=== PATIENT | male | born 1975 | race Caucasian/White ===

== ENCOUNTER 2020-07-03 10:01 | Outpatient (CLI) | payer OTHER, SELFPAY ==
--- NOTE | 2020-07-03 13:05 | WPDPFTINT ---
PFT Interpretation PFT Interpretation: DOS: 07/03/2020 REQUESTING: Steven Albarran PA-C REASON FOR TESTING: shortness of breath, tobacco PULMONARY FUNCTION TESTS Results are reliable and reproducible. Spirometry: FEV1 91%, FVC 95%, both normal. FEV1% is normal, 94%. GGZ70-60% is 71%. There is no change with bronchodilator. Lung volumes: TLC 126%, mild hyperinflation. RV is 197%, severe air trapping. Airway resistance is 100%, normal. Diffusion: DLCO 98%. Flow volume loop: Normal. IMPRESSION: this pulmonary function test shows normal spirometry. Mild hyperinflation. Severe air trapping. Normal diffusion. This is consistent with a mild obstructive ventilatory defect. No response to bronchodilator. This does not preclude the use of bronchodilator if clinically indicated. Noelle Hernandez MD
== END 2020-07-03 10:02 | disposition home or self-care (01) ==
PROVIDERS: PCP Physician Assistant; Visit Provider Physician Assistant
DX: Z72.0 Tobacco use (principal)
CPT/HCPCS: 94060; 94726; 94729

== ENCOUNTER 2020-08-16 05:33 | Emergency (ER) | payer OTHER, SELFPAY ==
--- NOTE | ~2020-08-16 | XR_ITS ---
EXAMINATION: XR toe 1st RT min 2V DATE: 08/16/2020 06:01 INDICATION: Right great toe laceration. TECHNIQUE: 4 views of right great toe were obtained. COMPARISON: None. FINDINGS: Bone alignment is normal. No fracture. 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 IMPRESSION: 1. No fracture. Reviewed, dictated and finalized at location A. IMPRESSION: 1. No fracture.
[2020-08-16 05:35] VITALS: BP 125/88; PULSE 73; RESP 18; TEMP 36.6; O2SAT 96
--- NOTE | 2020-08-16 05:42 | ED.WOUNDLAC ---
HPI - Wound/Laceration General Chief Complaint: Wound/Laceration Stated Complaint: Right great toe laceration Source: patient and EMS Mode of arrival: EMS Limitations: no limitations History of Present Illness HPI narrative: this is a 45-year-old gentleman that presents after he was outdoors and he stepped on what he described as a sharp object/possible razor blade that caused laceration to the underside of his right large toe appears well approximated initially blood quite a bit currently there is no bleeding there is no gaping area there is no numbness or tingling has a good pedal pulse on the right. Patient is not up-to-date with his tetanus. Onset (ago): hour(s) Extremity Location: Right: foot (Laceration) Place: outdoors Context: accidental Associated symptoms: none Related Data Home Medications Medication Instructions Recorded Confirmed venlafaxine 300 mg PO DAILY 08/16/20 08/16/20 Allergies Allergy/AdvReac Type Severity Reaction Status Date / Time No Known Allergies Allergy Verified 08/16/20 05:41 Review of Systems Review of Systems: All systems reviewed & are unremarkable except as noted in HPI and below [facility] Past Medical History Medical History Tobacco abuse Exam Const: General: no acute distress and alert Orientation/consciousness: patient oriented x3 HENMT: Head: normal to inspection Eyes: Conjunctivae: conjunctivae normal Pupils: Equal, round and reactive pupils present Neck: Neck: normal visual inspection, no lymphadenopathy and no meningeal signs Chest: Chest palpation & inspection: normal inspection of the chest Resp: Effort & Inspection: normal respiratory effort Auscultation: clear to auscultation bilaterally Cardio: Rate: regular rate Rhythm: regular rhythm GI: GI Palp: Yes Soft to palpation Percussion: Yes normal to percussion Back/Spine/Pelvis: Back: no CVA tenderness Skin: Other: laceration to the underside of his right large toe non gaping well-approximated currently no bleeding. Neuro: General: patient oriented x3, moves all extremities, no meningeal signs and no focal motor deficits Extrem: General: normal to inspection Psych: Appearance: grossly normal Mental Status: mental status grossly normal Affect: normal affect Attitude: cooperative Course Course Emergency Course: X-ray reviewed with patient and Dermabond applied to the laceration. Patient was updated with his tetanus vaccine. Procedures Laceration Laceration 1: Date: 08/16/20 Time: 06:11 Site: lower extremity Side (If applicable): right Size (cm): 2.5 Description: linear ====== Skin Level ====== Skin layer closed with: dermabond ====== Subcutaneous Layer ====== ====== Muscle Layer ====== ====== Tendon Layer ====== Critical Care Time Critical Care Time Critical Care Time: No Discharge Plan Discharge Clinical Impression: Laceration Patient Disposition: Home, Self-Care Condition: Stable Instructions: Antibiotic Form, Laceration (ED) Additional Instructions: Follow-up with primary care physician if symptoms persist or worsen. Prescriptions: No Action venlafaxine 75 mg capsule,extended release 24hr 300 mg PO DAILY RF: 0 Follow-up/Referrals: Deion,HECTOR Walsh [Primary Care Provider] - Time of Disposition: 06:12
[2020-08-16] MEDS: TETANUS,DIPHTHERIA,AC PERTUSSIS ADULT 0.5 ML (ADACEL) IM (05:53)
--- NOTE | 2020-08-16 06:01 | PC.NURSE ---
0540-I cleaned patient's wound on his right foot, first digit, great toe, with betadine swabs and sterile water.
[2020-08-16 06:16] VITALS: BP 140/92; PULSE 80; RESP 20; O2SAT 97
== END 2020-08-16 06:27 | disposition home or self-care (01) ==
PROVIDERS: Emergency Provider Emergency Medicine; PCP Physician Assistant
DX: S91.111A Laceration without foreign body of right great toe without damage to nail, initial encounter (principal); W26.9XXA Contact with unspecified sharp object(s), initial encounter
CPT/HCPCS: 12001; 73660; 90471; 90715; 99282; 99283

== ENCOUNTER 2021-02-07 15:23 | Emergency (ER) | payer OTHER, SELFPAY ==
[2021-02-07 15:30] VITALS: BP 127/91; PULSE 79; RESP 18; TEMP 36.4; O2SAT 98
--- NOTE | 2021-02-07 16:10 | ED.GENADULT ---
HPI - General Adult General Chief complaint: Unspecified Stated complaint: stuck in rt leg with a needle Time Seen by Provider: 02/07/21 15:25 Source: patient and RN notes reviewed Mode of arrival: ambulatory Limitations: no limitations History of Present Illness HPI narrative: superficial right hip needle stick. no acute redness, swelling or deformity complaint: right hip superficial needle stick injury Onset (ago): hour(s) (1) Location: lower extremity (right hip) Radiation: non-radiation Severity scale (1-10): 1 Quality: dull Pain Consistency: constant Relieving factors: none Exacerbating factors: none Associated symptoms: denies other symptoms Treatments prior to arrival: none Related Data Allergies Allergy/AdvReac Type Severity Reaction Status Date / Time No Known Allergies Allergy Verified 08/16/20 05:41 Review of Systems Review of Systems: All systems reviewed & are unremarkable except as noted in HPI and below PMFSH Past Medical History Medical History Tobacco abuse Exam Const: General: cooperative, healthy appearing and comfortable Nutritional Appearance: average body habitus Orientation/consciousness: patient oriented x3 Limitations: no limitations HENMT: Head: normal to inspection Ears: hearing grossly normal bilaterally, external ears normal and TM's normal bilaterally General nose exam: Normal external nose present, Normal nares present and No nasal polyps present Mouth: Yes Normal oral and palatal mucosa present, Yes lip normal and Yes tongue normal Teeth and gingiva: dentition normal Throat: posterior oropharynx normal Eyes: General: appearance normal, both eyes and all related structures Eyelids: eyelids normal Conjunctivae: conjunctivae normal Sclera: sclerae normal Cornea: corneas normal Pupils: Equal, round and reactive pupils present EOM: EOMs intact bilaterally Neck: Neck: normal visual inspection, full ROM and no lymphadenopathy Chest: Chest palpation & inspection: normal inspection of the chest Resp: Effort & Inspection: normal respiratory effort Auscultation: clear to auscultation bilaterally Cardio: Rate: regular rate Rhythm: regular rhythm GI: Inspection: normal to inspection GI Palp: Yes Soft to palpation Percussion: Yes normal to percussion Auscultation: normal bowel sounds : General: Yes bladder normal to inspection and Yes bladder normal to palpation Male General Exam: Yes other (left upper hip single superficial puncture wound. no acute swelling, pus ) Back/Spine/Pelvis: Back: no CVA tenderness Thoracic/Lumbar Spine: thoracic and lumbar spine normal to inspection Pelvis: no pain with anterior-posterior compression and no pain with lateral compression Skin: General skin exam: normal color and no rashes or lesions noted Rashes: no rashes Hair: normal Nails: normal Neuro: General: patient oriented x3 and gait normal Cranial nerves: Yes CN's II-XII intact bilaterally and Yes Bilaterally intact EOM present Cognition (Neuro): normal cognition Speech: normal speech Gait exam (Neuro): Normal gait present Extrem: General: normal to inspection, full ROM and capillary refill normal Psych: Appearance: grossly normal and well kempt Mental Status: mental status grossly normal Affect: normal affect Attitude: cooperative Thought process: Normal thought process present Thought content: Yes Normal thought content present Insight: Good insight present (Psych) Judgement: Good judgement present (Psych) Course Course Emergency Course: Stable pt with superficial right hip puncture wound. Reevaluation(s) Reevaluation #1: Stable, pain-free patient. Date: 02/07/21 Time: 16:26 Vital Signs Vital signs: Vital Signs Temperature 36.4 C 02/07/21 15:30 Pulse Rate 79 02/07/21 15:30 Respiratory Rate 18 02/07/21 15:30 Blood Pressure 127/91 H 02/07/21 15:30 Pulse Oximetry 98 02/07/21 15:30 Temperat
[2021-02-07 16:45] LABS: Basophils Absolute Auto 0.07 K/mm3 (0.00-0.10); Basophils Percent Auto 1.2 % (0.0-1.0); Eosinophils Absolute Auto 0.12 K/mm3 (0.02-0.50); Hematocrit 36.7 % (40.0-54.0); Hemoglobin 12.1 g/dL (14.0-18.0); Immature Granulocyte Absolute 0.01 K/mm3 (0.00-0.00); Immature Granulocyte Percent A 0.2 % (0.0-0.0); Lymphocytes Percent Auto 30.7 % (18.0-42.0); Mean Corpuscular Hemoglobin 28.9 pg (27.0-31.0); Mean Corpuscular Volume 87.6 fL (78.0-102.0); Mean Platelet Volume 8.9 fl (8.7-11.0); Monocytes Absolute Auto 0.59 K/mm3 (0.10-0.90); Monocytes Percent Auto 10.1 % (2.0-11.0); Neutrophils Absolute Auto 3.3 K/mm3 (1.7-7.2); Neutrophils Percent Auto 55.8 % (50.0-70.0); Platelet Count Result 250 K/mm3 (150-420); Red Blood Count 4.19 M/mm3 (4.70-6.10); Red Cell Distribution Width 13.2 % (11.6-14.4); White Blood Count 5.9 K/mm3 (4.8-10.8)
[2021-02-07 17:10] VITALS: RESP 16
[2021-02-07 17:17] LABS: HIV 1 P24 AG Negative (Negative); HIV 1/2 AB Negative (Negative)
--- NOTE | 2021-02-07 17:17 | PC.NURSE ---
pt states I have a celebration of life for my Dad ousmane at 6;00 and I need to go right now , discharge papers provided quickly. pt instructed to call boom operator if any questions arise and f/u with pcp for results
[2021-02-11 12:21] LABS: Hepatitis A Antibody IgM Nonreactive; Hepatitis B Core Antibody Nonreactive (Nonreactive); Hepatitis B Surface Antigen Nonreactive (Nonreactive); Hepatitis C Signal to Cutoff 0.01 ratio (<1.00); Hepatitis C Virus Antibody Nonreactive (Nonreactive)
== END 2021-02-07 17:10 | disposition home or self-care (01) ==
PROVIDERS: Emergency Provider Emergency Medicine; PCP Physician Assistant
DX: S81.831A Puncture wound without foreign body, right lower leg, initial encounter (principal)
CPT/HCPCS: 36415; 80074; 85025; 86703; 99283

== ENCOUNTER 2021-09-30 14:10 | Emergency (ER) | payer OTHER, SELFPAY ==
--- NOTE | ~2021-09-30 | XR_ITS ---
EXAMINATION: XR hand LT min 3V INDICATION: Left hand pain TECHNIQUE: Three views of the left hand are obtained. COMPARISON: None available FINDINGS: There is no fracture, dislocation, or subluxation. The bones, soft tissues, and joint space s are normal. IMPRESSION: 1. No acute osseous abnormality. Reviewed, dictated and finalized at location A.
--- NOTE | ~2021-09-30 | XR_ITS ---
EXAMINATION: XR wrist LT 2V INDICATION: Left wrist pain TECHNIQUE: Two views of the left wrist are obtained. COMPARISON: None available FINDINGS: There is no fracture, dislocation, or subluxation. The bones and joint spaces are normal. T here is soft tissue swelling overlying the lateral and ventral distal forearm. IMPRESSION: 1. No acute osseous abnormality. Reviewed, dictated and finalized at location A.
[2021-09-30 14:15] VITALS: BP 129/86; PULSE 84; RESP 18; TEMP 37.1; O2SAT 98
--- NOTE | 2021-09-30 15:31 | ED.UPPEXIN ---
HPI - Extremity Injury (Upper) General Chief Complaint: Extremity Injury, Upper Stated Complaint: WRIST AND HAND PAIN Time Seen by Provider: 09/30/21 14:12 Related Data Allergies Allergy/AdvReac Type Severity Reaction Status Date / Time No Known Allergies Allergy Verified 08/16/20 05:41 [facility] Past Medical History Medical History Tobacco abuse Course Vital Signs Vital signs: Vital Signs Temperature 37.1 C 09/30/21 14:15 Pulse Rate 84 09/30/21 14:15 Respiratory Rate 18 09/30/21 14:15 Blood Pressure 129/86 09/30/21 14:15 Pulse Oximetry 98 09/30/21 14:15 Temperature 36.6 C 09/30/21 15:56 Pulse Rate 84 09/30/21 15:56 Respiratory Rate 20 09/30/21 15:56 Blood Pressure 129/86 09/30/21 15:56 Pulse Oximetry 98 09/30/21 15:56 Discharge Plan Discharge Clinical Impression: Sprain and strain of wrist Contusion of hand, left Qualifiers: Encounter type: initial encounter Qualified Code(s): S60.222A - Contusion of left hand, initial encounter Patient Disposition: Home, Self-Care Condition: Stable Instructions: Antibiotic Form, How to Use a Sling (ED), Splint Care (ED) Additional Instructions: home. May RTC prn. PMD in 1-2 days. Rx below. RICE. Off work x 2 days vs light duty. Prescriptions: New ibuprofen 800 mg tablet 800 mg PO TID Qty: 20 RF: 0 omeprazole magnesium [Prilosec OTC] 20 mg tablet,delayed release (DR/EC) 20 mg PO BID Qty: 20 RF: 0 No Action methylprednisolone [Medrol] 4 mg tablet 4 mg PO DAILY Qty: 21 RF: 0 diphenhydramine HCl [Benadryl] 25 mg capsule 50 mg PO TID PRN (Reason: allergic reaction) Qty: 20 RF: 0 Follow-up/Referrals: Deion,HECTOR Walsh [Primary Care Provider] - Stand Alone Forms: Work/School Release IP Time of Disposition: 15:08
[2021-09-30] MEDS: KETOROLAC (*BKC) 60 MG/2 ML VIAL IM (15:51)
[2021-09-30 15:56] VITALS: BP 129/86; PULSE 84; RESP 20; TEMP 36.6; O2SAT 98
== END 2021-09-30 16:02 | disposition home or self-care (01) ==
PROVIDERS: Emergency Provider Emergency Medicine; PCP Physician Assistant
DX: S60.222A Contusion of left hand, initial encounter (principal); S63.502A Unspecified sprain of left wrist, initial encounter
CPT/HCPCS: 73100; 73130; 96372; 99283; A4565; J1885

== ENCOUNTER 2021-10-14 15:47 | Emergency (ER) | payer OTHER, SELFPAY ==
[2021-10-14 15:50] VITALS: BP 140/78; PULSE 87; RESP 18; TEMP 36.6; O2SAT 97
--- NOTE | 2021-10-14 16:01 | ED.GIBLEED ---
HPI - GI Bleed General Chief complaint: GI Bleed Stated complaint: passing blood Time Seen by Provider: 10/14/21 16:01 Source: patient and RN notes reviewed Mode of arrival: ambulatory Limitations: no limitations History of Present Illness complaint: blood on toilet paper Onset (ago): day(s) (1) Pain Consistency: intermittent Severity: mild Relieving factors: none Exacerbating factors: bowel movement Associated symptoms: denies other symptoms Treatments Prior to Arrival: none Related Data Allergies Allergy/AdvReac Type Severity Reaction Status Date / Time No Known Allergies Allergy Verified 08/16/20 05:41 Review of Systems Review of Systems: All systems reviewed & are unremarkable except as noted in HPI and below Constitutional: Constitutional: Denies weakness Respiratory: Respiratory: Denies dyspnea Gastrointestinal: Gastrointestinal: Denies constipation, Denies diarrhea, Denies nausea and Denies vomiting PMFSH Past Medical History Medical History (Updated 10/14/21 @ 16:24 by Nomi Camacho MD) Perforated ulcer of intestine Tobacco abuse Exam Const: General: healthy appearing, no acute distress and alert Nutritional Appearance: well nourished and thin Orientation/consciousness: patient oriented x3 HENMT: Head: normal to inspection Ears: external ears normal Face and sinus: normal facial exam Mouth: Yes moist mucous membranes Eyes: Conjunctivae: conjunctivae normal Pupils: Equal, round and reactive pupils present EOM: EOMs intact bilaterally Neck: Neck: normal visual inspection Resp: Effort & Inspection: normal respiratory effort Auscultation: clear to auscultation bilaterally Cardio: Rate: regular rate Rhythm: regular rhythm GI: GI Palp: Yes Soft to palpation, No Tenderness to palpation present (GI) and No Guarding due to palpation present (GI) Auscultation: normal bowel sounds Rectal Exam: normal sphincter tone, heme positive stool and Internal hemorrhoid(s) present Back/Spine/Pelvis: Back: no CVA tenderness Cervical Spine: cervical ROM normal Thoracic/Lumbar Spine: thoraco-lumbar ROM normal Skin: General skin exam: normal color Rashes: no rashes Neuro: General: patient oriented x3, moves all extremities, no focal motor deficits and CN's II-XI intact bilaterally Speech: normal speech Gait exam (Neuro): Normal gait present Extrem: General: normal to inspection and no clubbing, cyanosis or edema Psych: Appearance: grossly normal and well kempt Mental Status: mental status grossly normal Affect: normal affect Attitude: cooperative Thought content: Yes Normal thought content present Course Vital Signs Vital signs: Vital Signs Temperature 36.6 C 10/14/21 15:50 Pulse Rate 87 10/14/21 15:50 Respiratory Rate 18 10/14/21 15:50 Blood Pressure 140/78 10/14/21 15:50 Pulse Oximetry 97 10/14/21 15:50 Temperature 36.6 C 10/14/21 16:32 Pulse Rate 87 10/14/21 16:32 Respiratory Rate 18 10/14/21 16:32 Blood Pressure 140/78 10/14/21 16:32 Pulse Oximetry 97 10/14/21 16:32 MDM - GI Bleed Lab Data Labs: Lab Results 10/14/21 Range/Units 16:20 Stool Occult Blood Positive (Negative) Discharge Plan Discharge Clinical Impression: Hemorrhoids, internal Patient Disposition: Home, Self-Care Condition: Stable Instructions: Hemorrhoids (ED) Additional Instructions: monitor for continued blood if not resolved in the next 5 days follow up with her primary care physician Prescriptions: New hydrocortisone acetate [Anusol-HC] 25 mg suppository 25 mg RECTAL TID 5 Days Qty: 15 RF: 0 Follow-up/Referrals: Deion,HECTOR Walsh [Primary Care Provider] - Time of Disposition: 16:23
[2021-10-14 16:32] VITALS: BP 140/78; PULSE 87; RESP 18; TEMP 36.6; O2SAT 97
[2021-10-14 16:38] LABS: Occult Blood Positive (Negative)
== END 2021-10-14 16:37 | disposition home or self-care (01) ==
PROVIDERS: Emergency Provider Emergency Medicine; PCP Physician Assistant
DX: K64.8 Other hemorrhoids (principal)
CPT/HCPCS: 82272; 99283

== ENCOUNTER 2022-02-15 16:37 | Emergency (ER) | payer OTHER, SELFPAY ==
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
[2022-02-15 16:40] VITALS: BP 135/94; PULSE 75; RESP 20; TEMP 35.9; O2SAT 100
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
[2022-02-15 17:44] VITALS: BP 142/93; PULSE 80; RESP 16; O2SAT 100
[2022-02-15] MEDS: KETOROLAC 30 MG/ML VIAL (*BKC) IV PUSH (18:06)
[2022-02-15 18:15] LABS: Basophils Absolute Auto 0.08 K/mm3 (0.00-0.10); Basophils Percent Auto 0.9 % (0.0-1.0); Eosinophils Absolute Auto 0.14 K/mm3 (0.02-0.50); Eosinophils Percent Auto 1.6 % (1.0-6.0); Hematocrit 39.5 % (40.0-54.0); Immature Granulocyte Absolute 0.04 K/mm3 (0.00-0.00); Immature Granulocyte Percent A 0.4 % (0.0-0.0); Lymphocytes Absolute Auto 1.48 K/mm3 (1.10-4.50); Lymphocytes Percent Auto 16.6 % (18.0-42.0); Mean Corpuscular HGB Conc 32.9 g/dL (32.0-36.0); Mean Corpuscular Hemoglobin 29.4 pg (27.0-31.0); Mean Corpuscular Volume 89.4 fL (78.0-102.0); Monocytes Absolute Auto 0.61 K/mm3 (0.10-0.90); Monocytes Percent Auto 6.8 % (2.0-11.0); Neutrophils Absolute Auto 6.6 K/mm3 (1.7-7.2); Neutrophils Percent Auto 73.7 % (50.0-70.0); Platelet Count Result 308 K/mm3 (150-420); Red Blood Count 4.42 M/mm3 (4.70-6.10); Red Cell Distribution Width 12.8 % (11.6-14.4); White Blood Count 8.9 K/mm3 (4.8-10.8)
[2022-02-15 18:29] LABS: Alanine Aminotransferase 35 U/L (16-63); Alkaline Phosphatase 92 U/L (46-116); Anion Gap 7 mmol/L (8-16); Aspartate Amino Transferase 28 U/L (15-37); Bilirubin,Total 0.3 mg/dL (0.00-1.00); Blood Urea Nitrogen 23 mg/dL (7-18); Calcium 9.6 mg/dL (8.5-10.1); Carbon Dioxide 26 mmol/L (21-32); Chloride 100 mmol/L (98-108); Estimated CRCL calculation 72 ml/min; Estimated Glomerular Filt Rate > 60; Glucose 97 mg/dL (70-99); Osmolality Calculated 279 mOsm/kg (285-295); Potassium 4.1 mmol/L (3.5-5.1); Sodium 133 mmol/L (136-145); Total Protein 7.6 g/dL (6.4-8.2)
[2022-02-15 19:12] LABS: Add Urine Microscopic? NO; Appearance Urine Clear (Clear); Bilirubin Urine Negative (Negative); Blood Urine Negative (Negative); Color Urine Light Yellow (Yellow); Glucose Urine UA Negative (Negative); Ketones Urine Negative (Negative); Leukocyte Esterase Ur Negative (Negative); Nitrate Urine Negative (Negative); Protein Urine Negative (Negative); Specific Grav Ur >= 1.030 (1.010-1.020); Urobilinogen Urine 0.2 mg/dL (0.2-1.0)
[2022-02-15] MEDS: AMOXICILLIN/CLAVULANATE K 875-125 MG TAB 1 TABLET PO (19:25)
[2022-02-15 19:27] VITALS: BP 111/66; PULSE 70; RESP 20; TEMP 36.6; O2SAT 99
== END 2022-02-15 19:45 | disposition home or self-care (01) ==
PROVIDERS: Emergency Provider Emergency Medicine; PCP Family Medicine
DX: S81.011A Laceration without foreign body, right knee, initial encounter (principal); V29.9XXA Motorcycle rider (driver) (passenger) injured in unspecified traffic accident, initial encounter; M79.18 Myalgia, other site
CPT/HCPCS: 12002; 36415; 70450; 71250; 72125; 73560; 73590; 74176; 80053; 81003; 85025; 96374; 99284; A9270; J1885; L0150

== ENCOUNTER 2022-04-14 06:46 | Emergency (ER) | payer OTHER, SELFPAY ==
[2022-04-14] VITALS (12 sets, daily range): BP systolic 116–147; BP diastolic 63–94; PULSE 72–782; RESP 14–20; TEMP 36.4; O2SAT 97–100
--- NOTE | ~2022-04-14 | XR_ITS ---
EXAMINATION: XR chest 1V portable DATE: 04/14/2022 07:11 INDICATION: Anterior chest pain. Shortness of breath. TECHNIQUE: A single frontal view of the chest was obtained. COMPARISON: Chest CT 02/15/2022 FINDINGS: The chest demonstrates clear lungs without pneumonia, pleural effusion, or pneumothorax. Th e heart size is normal. IMPRESSION: 1. No acute cardiopulmonary disease. Reviewed, dictated and finalized at location A. E INSPECTOR
--- NOTE | 2022-04-14 06:51 | ECG_ITS ---
Measurements Intervals [place] Rate: 80 P: 68 PA: 161 QRS: 59 QRSD: 91 T: 71 QT: 337 QTc: 389 Interpretive Statements SINUS RHYTHM BASELINE WANDER- III, AVL NORMAL ECG NO PREVIOUS ECG AVAILABLE FOR COMPARISON Electronically Signed On 04-14-2022 7:56:33 HEAD AND NECK SURGEON by Mark Olguin D.O.
--- NOTE | 2022-04-14 06:55 | ED.CHESTPAIN ---
HPI - Chest Pain General Chief Complaint: Chest Pain <Brock Bearden MD - Last Filed: 04/14/22 07:02> Stated Complaint: chest pain <Brock Bearden MD - Last Filed: 04/14/22 07:02> Time Seen by Provider: 04/14/22 06:51 <Brock Bearden MD - Last Filed: 04/14/22 07:02> Source: patient <Brock Bearden MD - Last Filed: 04/14/22 07:02> Mode of arrival: ambulatory <Brock Bearden MD - Last Filed: 04/14/22 07:02> Limitations: no limitations <Brock Bearden MD - Last Filed: 04/14/22 07:02> History of Present Illness HPI narrative: this is a 47-year-old gentleman with a history of angina, current smoker family history of [place] in his mother. The patient woke up about an hour ago with some midsternal chest pain rates it at about a 10/10 with some some diaphoresis, shortness of breath some nausea with no vomiting no abdominal pain no flank pain no fever chills no diarrhea constipation. Patient says that he has had similar episodes in the past diagnosed as angina but has not had any formal workup thus far is a cardiac catheterization or stress test. <Brock Bearden MD - Last Filed: 04/14/22 07:02> MD complaint: chest pain and chest heaviness <Brock Bearden MD - Last Filed: 04/14/22 07:02> Pertinent past history: other ( history of angina) <Brock Bearden MD - Last Filed: 04/14/22 07:02> Onset (ago): hour(s) <Brock Bearden MD - Last Filed: 04/14/22 07:02> Timing of current episode: constant <Brock Bearden MD - Last Filed: 04/14/22 07:02> Prior episodes: Yes <Brock Bearden MD - Last Filed: 04/14/22 07:02> Onset: awoke with symptoms <Brock Bearden MD - Last Filed: 04/14/22 07:02> Pain location: substernal <Brock Bearden MD - Last Filed: 04/14/22 07:02> Pain radiation: none <Brock Bearden MD - Last Filed: 04/14/22 07:02> Severity: severe <Brock Bearden MD - Last Filed: 04/14/22 07:02> Quality: heaviness <Brock Bearden MD - Last Filed: 04/14/22 07:02> Relieving factors: nitroglycerin <Brock Bearden MD - Last Filed: 04/14/22 07:02> Related Data Home Medications: Home Medications Medication Instructions Recorded Confirmed No Home Medications 04/14/22 04/14/22 <Brock Bearden MD - Last Filed: 04/14/22 07:02> Allergies/Adverse Reactions: Allergies Allergy/AdvReac Type Severity Reaction Status Date / Time No Known Allergies Allergy Verified 04/14/22 07:20 <Brock Bearden MD - Last Filed: 04/14/22 07:02> Review of Systems Review of Systems: All systems reviewed & are unremarkable except as noted in HPI and below <Brock Bearden MD - Last Filed: 04/14/22 07:02> PMFSH Past Medical History Medical History: Medical History Perforated ulcer of intestine Tobacco abuse <Brock Bearden MD - Last Filed: 04/14/22 07:02> Exam Const: General: ill appearing <Brock Bearden MD - Last Filed: 04/14/22 07:02> Nutritional Appearance: well nourished <Brock Bearden MD - Last Filed: 04/14/22 07:02> Orientation/consciousness: patient oriented x3 <Brock Bearden MD - Last Filed: 04/14/22 07:02> Limitations: no limitations <Brock Bearden MD - Last Filed: 04/14/22 07:02> HENMT: Head: normal to inspection <Brock Bearden MD - Last Filed: 04/14/22 07:02> Face and sinus: normal facial exam <Brock Bearden MD - Last Filed: 04/14/22 07:02> Mouth: Yes Normal oral and palatal mucosa present <Brock Bearden MD - Last Filed: 04/14/22 07:02> Eyes: Conjunctivae: conjunctivae normal <Brock Bearden MD - Last Filed: 04/14/22 07:02> Pupils: Equal, round and reactive pupils present <Brock Bearden MD - Last Filed: 04/14/22 07:02> EOM: EOMs intact bilaterally <Brock Bearden MD - Last Filed: 04/14/22 07:02> Neck: Neck: nor
[2022-04-14] MEDS: ASPIRIN 81 MG CHEWABLE TABLET 324 MG PO (06:59)
[2022-04-14] MEDS: NITROGLYCERIN SL 0.4 MG TABLET SUBLINGUAL ×2 (07:01→07:29)
[2022-04-14 07:07] LABS: Basophils Absolute Auto 0.08 K/mm3 (0.00-0.10); Basophils Percent Auto 0.8 % (0.0-1.0); Eosinophils Absolute Auto 0.13 K/mm3 (0.02-0.50); Eosinophils Percent Auto 1.3 % (1.0-6.0); Hematocrit 38.8 % (40.0-54.0); Hemoglobin 12.8 g/dL (14.0-18.0); Immature Granulocyte Absolute 0.03 K/mm3 (0.00-0.00); Immature Granulocyte Percent A 0.3 % (0.0-0.0); Lymphocytes Absolute Auto 1.92 K/mm3 (1.10-4.50); Lymphocytes Percent Auto 19.9 % (18.0-42.0); Mean Corpuscular Hemoglobin 29.5 pg (27.0-31.0); Mean Corpuscular Volume 89.4 fL (78.0-102.0); Mean Platelet Volume 9.1 fl (8.7-11.0); Monocytes Absolute Auto 0.77 K/mm3 (0.10-0.90); Neutrophils Absolute Auto 6.7 K/mm3 (1.7-7.2); Neutrophils Percent Auto 69.7 % (50.0-70.0); Platelet Count Result 259 K/mm3 (150-420); Red Blood Count 4.34 M/mm3 (4.70-6.10); Red Cell Distribution Width 12.7 % (11.6-14.4); White Blood Count 9.6 K/mm3 (4.8-10.8)
--- NOTE | 2022-04-14 07:12 | PC.NURSE ---
Pt is resting at this time, awaiting lab results. VSS, Report given to JENNA Faith
[2022-04-14 07:20] LABS: D Dimer 0.19 mg/L (0.19-0.50); INR 0.9; Partial Thromboplastin Time 27.8 SEC (23.90-30.70)
[2022-04-14 07:32] LABS: Alanine Aminotransferase 36 U/L (16-63); Albumin Level 3.9 g/dL (3.4-5.0); Alkaline Phosphatase 82 U/L (46-116); Anion Gap 8 mmol/L (8-16); Aspartate Amino Transferase 23 U/L (15-37); Bilirubin,Total 0.2 mg/dL (0.00-1.00); Blood Urea Nitrogen 18 mg/dL (7-18); Calcium 8.8 mg/dL (8.5-10.1); Carbon Dioxide 29 mmol/L (21-32); Chloride 103 mmol/L (98-108); Estimated CRCL calculation 59 ml/min; Estimated Glomerular Filt Rate > 60; Glucose 92 mg/dL (70-99); Lipase 61 U/L (73-393); NT Pro B Type Natriuretic Pept 17 pg/mL (0-125); Osmolality Calculated 291 mOsm/kg (285-295); Potassium 3.9 mmol/L (3.5-5.1); Sodium 140 mmol/L (136-145); Total Protein 7.6 g/dL (6.4-8.2); Troponin I 6.8 ng/L (0.00-60.4)
--- NOTE | 2022-04-14 10:00 | ECG_ITS ---
Measurements Intervals [place] Rate: 72 P: 66 HI: 160 QRS: 71 QRSD: 89 T: 72 QT: 360 QTc: 394 Interpretive Statements SINUS RHYTHM BASELINE WANDER- I, II, III, AVR, AVL NORMAL ECG COMPARED TO ECG 04/14/2022 06:52:22 NO SIGNIFICANT CHANGES Electronically Signed On 04-14-2022 10:07:30 SOFTWARE ENGINEER KERNEL by Mark Olguin D.O.
[2022-04-14 10:30] LABS: Troponin I 6.7 ng/L (0.00-60.4)
== END 2022-04-14 11:03 | disposition home or self-care (01) ==
PROVIDERS: Emergency Medicine; Emergency Provider Internal Medicine Critical Care Medicine; PCP Physician Assistant
DX: R07.89 Other chest pain (principal)
CPT/HCPCS: 36415; 71045; 80053; 83690; 83880; 84484; 85025; 85380; 85610; 85730; 93005; 99284; A9270

== ENCOUNTER 2022-12-05 09:20 | Emergency (ER) | payer OTHER, SELFPAY ==
[2022-12-05 09:22] VITALS: BP 125/84; PULSE 94; RESP 20; TEMP 36.9; O2SAT 97
--- NOTE | 2022-12-05 09:22 | ED.ALLEREA ---
HPI - Allergic Reaction General Chief complaint: Allergic Reaction Stated complaint: allergic reaction Time Seen by Provider: 12/05/22 09:22 Source: patient Mode of arrival: ambulatory Limitations: no limitations History of Present Illness HPI narrative: this is a 47-year-old male who presents with a rash that is itchy located on his arms with no facial swelling no fever chills no shortness of breath no audible wheezing no nausea vomiting abdominal pain, patient is not sure when he came in contact with. MD complaint: allergic reaction and hives Onset (ago): day(s) Symptoms: rash and itching Related Data Allergies Allergy/AdvReac Type Severity Reaction Status Date / Time No Known Allergies Allergy Verified 12/05/22 09:26 Review of Systems Review of Systems: All systems reviewed & are unremarkable except as noted in HPI and below PMFSH Past Medical History Medical History Perforated ulcer of intestine Tobacco abuse Exam Const: General: healthy appearing Nutritional Appearance: well nourished Orientation/consciousness: patient oriented x3 Limitations: no limitations HENMT: Head: normal to inspection Eyes: Conjunctivae: conjunctivae normal Resp: Effort & Inspection: normal respiratory effort Auscultation: clear to auscultation bilaterally Cardio: Rate: regular rate Rhythm: regular rhythm GI: GI Palp: Yes Soft to palpation Auscultation: normal bowel sounds Skin: Other: Retic rash located on his arm Extrem: General: normal to inspection Psych: Mental Status: mental status grossly normal Affect: normal affect Course Course Emergency Course: patient received a dose of IM Depo-Medrol and IM Benadryl Critical Care Time Critical Care Time Critical Care Time: No Discharge Plan Discharge Clinical Impression: Allergic reaction Patient Disposition: Home, Self-Care Condition: Stable Instructions: Antibiotic Form, General Allergic Reaction (ED) Additional Instructions: take medicine as prescribed and follow up with primary if symptoms persist or worsen. Prescriptions: New prednisone 20 mg tablet 20 mg PO DAILY 5 Days Qty: 5 0RF diphenhydramine HCl [Benadryl] 25 mg capsule 25 mg PO TID PRN (Reason: allergic reaction) Qty: 14 0RF Follow-up/Referrals: Deion,HECTOR Walsh [Primary Care Provider] - Time of Disposition: :26
[2022-12-05] MEDS: methylPREDNISolone ACETATE 40 MG/ML VIAL 80 MG IM (09:30)
[2022-12-05] MEDS: diphenhydrAMINE HCl INJ 50 MG/ML VIAL 25 MG IM (09:30)
[2022-12-05 09:51] VITALS: BP 128/78; PULSE 84; RESP 20; TEMP 36.6; O2SAT 99
== END 2022-12-05 09:56 | disposition home or self-care (01) ==
PROVIDERS: Emergency Provider Emergency Medicine; PCP Physician Assistant
DX: T78.40XA Allergy, unspecified, initial encounter (principal)
CPT/HCPCS: 96372; 99284; J1030; J1200

== ENCOUNTER 2023-02-06 21:40 | Emergency (ER) | payer OTHER, SELFPAY ==
--- NOTE | ~2023-02-06 | XR_ITS ---
EXAMINATION: XR chest 1V portable Exam Date/Time: 02/06/2023 21:45 CDT HISTORY: chest pain Comparison: 04/14/2022. RESULT: Lines, tubes, and devices: None. Lungs and pleura: Clear. Cardiomediastinal silhouette: Stable. Other: No acute osseous or upper abdominal finding. IMPRESSION: No acute cardiopulmonary process. Reviewed, dictated and finalized at location K.
[2023-02-06 21:40] VITALS: BP 129/81; PULSE 94; PULSE 95; RESP 24; TEMP 36.6; O2SAT 100; O2SAT 98
--- NOTE | 2023-02-06 21:43 | ECG_ITS ---
Measurements Intervals [place] Rate: 91 P: 108 [place]: 138 QRS: 153 QRSD: 81 T: 125 QT: 309 QTc: 382 Interpretive Statements SINUS RHYTHM ARM LEADS REVERSED ATYPICAL ECG COMPARED TO ECG 04/14/2022 10:05:56 NO SIGNIFICANT CHANGES Electronically Signed On 02-07-2023 7:12:26 CDT by Mark Olguin D.O.
[2023-02-06] MEDS: ONDANSETRON INJ 4 MG/2 ML VIAL IV PUSH (21:51)
[2023-02-06] MEDS: ASPIRIN 81 MG CHEWABLE TABLET 324 MG PO (21:51)
[2023-02-06] MEDS: NITROGLYCERIN SL 0.4 MG TABLET SUBLINGUAL (21:51)
[2023-02-06 22:01] LABS: Basophils Absolute Auto 0.08 K/mm3 (0.00-0.10); Basophils Percent Auto 0.8 % (0.0-1.0); Eosinophils Absolute Auto 0.11 K/mm3 (0.02-0.50); Hematocrit 43.5 % (40.0-54.0); Hemoglobin 14.1 g/dL (14.0-18.0); Immature Granulocyte Absolute 0.03 K/mm3 (0.00-0.00); Immature Granulocyte Percent A 0.3 % (0.0-0.0); Lymphocytes Absolute Auto 1.29 K/mm3 (1.10-4.50); Lymphocytes Percent Auto 12.2 % (18.0-42.0); Mean Corpuscular HGB Conc 32.4 g/dL (32.0-36.0); Mean Corpuscular Hemoglobin 29.4 pg (27.0-31.0); Mean Corpuscular Volume 90.8 fL (78.0-102.0); Mean Platelet Volume 9.1 fl (8.7-11.0); Monocytes Absolute Auto 0.77 K/mm3 (0.10-0.90); Monocytes Percent Auto 7.3 % (2.0-11.0); Neutrophils Absolute Auto 8.3 K/mm3 (1.7-7.2); Neutrophils Percent Auto 78.4 % (50.0-70.0); Platelet Count Result 335 K/mm3 (150-420); Red Blood Count 4.79 M/mm3 (4.70-6.10); Red Cell Distribution Width 13.2 % (11.6-14.4); White Blood Count 10.6 K/mm3 (4.8-10.8)
[2023-02-06] MEDS: MORPHINE SULFATE (*CRX) 4 MG/ML INJ IV PUSH (22:14)
[2023-02-06 22:26] LABS: Alanine Aminotransferase 33 U/L (16-63); Albumin Level 3.9 g/dL (3.4-5.0); Alkaline Phosphatase 88 U/L (46-116); Anion Gap 7 mmol/L (8-16); Aspartate Amino Transferase 17 U/L (15-37); Bilirubin,Total 0.5 mg/dL (0.00-1.00); Blood Urea Nitrogen 17 mg/dL (7-18); Carbon Dioxide 27 mmol/L (21-32); Chloride 103 mmol/L (98-108); Estimated CRCL calculation 73 ml/min; Estimated Glomerular Filt Rate > 60; Glucose 97 mg/dL (70-99); Lipase 22 U/L (16-77); NT Pro B Type Natriuretic Pept < 11 pg/mL (0-125); Osmolality Calculated 285 mOsm/kg (285-295); Potassium 4.2 mmol/L (3.5-5.1); Sodium 137 mmol/L (136-145); Total Protein 7.8 g/dL (6.4-8.2); Troponin I 4.8 ng/L (0.00-60.4)
[2023-02-06 22:32] LABS: D Dimer 0.19 mg/L (0.19-0.50); INR 0.9; Partial Thromboplastin Time 28.8 SEC (23.90-30.70); Prothrombin Time 10.3 Seconds (9.50-12.10)
[2023-02-06 22:36] VITALS: BP 132/90; PULSE 84; RESP 20; O2SAT 97
[2023-02-06 22:45] VITALS: PULSE 84; O2SAT 96
--- NOTE | 2023-02-06 22:46 | ED.CHESTPAIN ---
HPI - Chest Pain General Chief Complaint: Chest Pain Stated Complaint: CHEST PAIN Source: patient Mode of arrival: ambulatory Limitations: no limitations History of Present Illness HPI narrative: this is a 47-year-old male had chest pain earlier this morning lasting a couple of hours and subsided and recurred later this evening and presented to the emergency department. He rates his pain at about 8/10 left-sided radiating to his left arm with no nausea vomiting no diaphoresis no shortness breath has a smoking history and has a family history of heart disease. Patient states that he has had angina in the past but has not taken nitroglycerin. Patient's pain is left-sided reproducible with palpation. There is no nausea vomiting no flank pain no abdominal pain no dysuria. MD complaint: chest pain and chest discomfort Onset (ago): hour(s) Timing of current episode: episodic Prior episodes: Yes Onset: during rest Pain location: left chest, subxiphoid and other ( reproducible chest pain with palpation) Pain radiation: left arm Severity: moderate Pain scale (0-10): 8 Quality: aching and heaviness Relieving factors: nothing Related Data Allergies Allergy/AdvReac Type Severity Reaction Status Date / Time No Known Allergies Allergy Verified 12/05/22 09:26 Review of Systems Review of Systems: All systems reviewed & are unremarkable except as noted in HPI and below PMFSH Past Medical History Medical History Perforated ulcer of intestine Tobacco abuse Exam Const: General: healthy appearing Nutritional Appearance: well nourished Orientation/consciousness: patient oriented x3 HENMT: Head: normal to inspection Eyes: Conjunctivae: conjunctivae normal Chest: Chest palpation & inspection: normal inspection of the chest and tenderness Other: Reproducible chest pain with palpation Resp: Effort & Inspection: normal respiratory effort Auscultation: clear to auscultation bilaterally Cardio: Rate: regular rate Rhythm: regular rhythm GI: GI Palp: Yes Soft to palpation : General: Yes bladder normal to palpation Back/Spine/Pelvis: Back: no CVA tenderness Skin: General skin exam: normal color Rashes: no rashes Neuro: General: patient oriented x3 Cranial nerves: Yes Nystagmus not present Extrem: General: normal to inspection Psych: Mental Status: mental status grossly normal Course Course Emergency Course: patient's ED EKG shows normal sinus rhythm, the patient did receive full-dose aspirin, and also received nitroglycerin which did not relieve his chest discomfort, also received 4mg IV morphine and pain level has improved. Which 1st troponin was within normal limits rest of his blood work including chest x-ray was within normal limits. 2nd troponin was normal. Vital Signs Vital signs: Vital Signs Temperature 36.6 C 02/06/23 21:40 Pulse Rate 95 02/06/23 21:40 Respiratory Rate 24 H 02/06/23 21:40 Blood Pressure 129/81 02/06/23 21:40 Pulse Oximetry 100 02/06/23 21:40 Oxygen Delivery Room Air 02/06/23 21:40 Temperature 36.6 C 02/06/23 21:40 Pulse Rate 75 02/06/23 23:00 Respiratory Rate 20 02/06/23 23:00 Blood Pressure 125/80 02/06/23 23:00 Pulse Oximetry 95 02/06/23 23:00 Oxygen Delivery Room Air 02/06/23 22:36 MDM - Chest Pain Lab Data 02/06/23 21:56 02/06/23 21:56 Labs: Lab Results 02/06/23 02/06/23 Range/Units 21:56 23:38 WBC 10.6 (4.8-10.8) K/mm3 RBC 4.79 (4.70-6.10) M/mm3 Hgb 14.1 (14.0-18.0) g/dL Hct 43.5 (40.0-54.0) % MCV 90.8 (78.0-102.0) fL MCH 29.4 (27.0-31.0) pg MCHC 32.4 (32.0-36.0) g/dL RDW 13.2 (11.6-14.4) % Plt Count 335 (150-420) K/mm3 MPV 9.1 (8.7-11.0) fl Immature Gran % (Auto) 0.3 H (0.0-0.0) % Neut % (Auto) 78.4 H (50.0-70.0) % Lymph % (Auto) 12.2 L (18.0-42.0) % [place] % (Auto) 7
[2023-02-06 23:00] VITALS: BP 125/80; PULSE 75; RESP 20; O2SAT 95
[2023-02-06 23:32] VITALS: O2SAT 96
[2023-02-06 23:47] VITALS: O2SAT 97
[2023-02-07 00:01] VITALS: BP 117/79; PULSE 79; RESP 20; O2SAT 96
[2023-02-07 00:01] LABS: Troponin I 4.8 ng/L (0.00-60.4)
[2023-02-07 00:14] LABS: Appearance Urine Clear (Clear); Bilirubin Urine Negative (Negative); Blood Urine Negative (Negative); Color Urine Yellow (Yellow); Glucose Urine UA Negative (Negative); Ketones Urine Negative (Negative); Leukocyte Esterase Ur Negative LEU/UL (Negative); Nitrate Urine Negative (Negative); Protein Urine Negative (Negative); Specific Grav Ur 1.025 (1.010-1.020); Urobilinogen Urine 0.2 mg/dL (0.2-1.0); pH Urine 6.5 (5.0-8.0)
[2023-02-07 00:17] LABS: Add Urine Microscopic? NO
[2023-02-07 00:19] VITALS: BP 118/71; PULSE 78; RESP 18; TEMP 36.6; O2SAT 99
[2023-02-07 00:23] LABS: Amphetamine Screen Urine Positive (Negative); Barbiturate Screen Urine Negative (Negative); Benzodiazepines Screen Urine Negative (Negative); Cannabinoid Screen Urine Positive (Negative); Cocaine Screen Urine Negative (Negative); Methadone Screen Urine Negative (Negative); Opiate Screen Urine Positive (Negative); Phencyclidine Screen Urine Negative (Negative)
== END 2023-02-07 00:22 | disposition home or self-care (01) ==
PROVIDERS: Emergency Provider Emergency Medicine; PCP Physician Assistant
DX: M94.0 Chondrocostal junction syndrome [Tietze] (principal); R07.89 Other chest pain
CPT/HCPCS: 36415; 71045; 80053; 80307; 81003; 83690; 83880; 84484; 85025; 85380; 85610; 85730; 93005; 96374; 96375; 99284; A9270; J2270; J2405

== ENCOUNTER 2023-05-16 17:17 | Emergency (ER) | payer OTHER, SELFPAY ==
--- NOTE | ~2023-05-16 | XR_ITS ---
EXAM: XR shoulder RT min 2V DATE: 05/16/2023 17:41 HISTORY: GENERALIZED SHOULDER PAIN RADIATES INTO RT NECK . COMPARISON: None available. FINDINGS: Normal mineralization. No fracture or dislocation. No lytic or blastic lesion. Mild degene rative change at the AC joint and glenohumeral joint. No erosion or periosteal change. Soft tissues w ithin normal limits. IMPRESSION: No acute osseous finding in the right shoulder. Reviewed, dictated and finalized at location K. PHARMACY TECHNICIAN
[2023-05-16 17:17] VITALS: BP 139/102; PULSE 102; RESP 16; TEMP 36.7; O2SAT 98
--- NOTE | 2023-05-16 17:28 | ECG_ITS ---
Measurements Intervals [place] Rate: 89 P: 74 [place]: 140 QRS: 0 QRSD: 85 T: 32 QT: 313 QTc: 382 Interpretive Statements SINUS RHYTHM NORMAL ECG COMPARED TO ECG 02/06/2023 21:45:54 NO SIGNIFICANT CHANGES Electronically Signed On 05-17-2023 17:03:35 PHOTOGRAPH MOUNTER by Napoleon Solis M.D.
[2023-05-16] MEDS: KETOROLAC 30 MG/ML VIAL (*BKC) 15 MG IM (17:43)
--- NOTE | 2023-05-16 17:53 | ED.UPPEXIN ---
HPI - Extremity Injury (Upper) General Chief Complaint: Extremity Injury, Upper Stated Complaint: right shoulder pain Time Seen by Provider: 05/16/23 17:25 History of Present Illness HPI narrative: patient is a 48-year-old male with no past medical history here today with shoulder pain. Patient notes that he woke up around 11 or 12:00 p.m. this morning and had significant pain in his right shoulder. He notes that he is concerned that his shoulder could be dislocated. He has pain with any movement of the shoulder. He notes that the pain seems to radiate up into his neck and down into his chest wall. He denies any associated shortness of breath, diaphoresis, nausea. No prior cardiac history. He denies any trauma. He notes the pain seems to be worst over his shoulder blade on that right side. Denies any prior issues with his shoulder. No cough, congestion, fever, chills. He states that he went to bed feeling his normal self last night. He is right handed. Related Data Allergies Allergy/AdvReac Type Severity Reaction Status Date / Time No Known Allergies Allergy Verified 05/16/23 17:22 Review of Systems Review of Systems: All systems reviewed & are unremarkable except as noted in HPI and below PMFSH Past Medical History Medical History Perforated ulcer of intestine Tobacco abuse Exam Narrative: GENERAL: Well-appearing, well-nourished, and in no acute distress. HEAD: Normocephalic, atraumatic. EYES: PERRLA and EOMI. ENT: Nares clear. Mucous membranes moist. NECK: Supple. CHEST: Clear to auscultation. No respiratory distress. No chest wall tenderness HEART: Regular rate and rhythm. Normal peripheral pulses. ABDOMEN: Soft, nontender, nondistended. EXTREMITIES: Limited range of motion of the right shoulder due to pain. No obvious deformity appreciated. Majority of tenderness seems to be over the scapular and trapezius region on the right side. Strong radial pulse with normal sensation over the arm and hand. . SKIN: Warm, dry, no rash. NEURO: No focal deficits. Alert and oriented x3. PSYCH: Normal mood and affect. Course Course Emergency Course: Chart review performed. Multiple prior visits in our system for atypical chest pain or traumatic injuries. He is here for concerns for shoulder dislocation. Triage vitals show tachycardia, otherwise normal. Patient seen and evaluated, no obvious deformity appreciated. Will do xray, pain control and screening EKG. EKG unremarkable. X-ray shows no fracture or dislocation. Patient does have a ride here, will give a Posey and re-evaluate. Patient has some pain relief with norco. Will discharge on tylenol, ibuprofen and with a sling. Advise to call PCP tomorrow. Instructed on ROM activities with shoulder 4 times a day while awake to ensure he does not develop adhesive capsulitis. The results of pertinent diagnostic studies and exam findings were discussed. The patient?s provisional diagnosis and plan of care were discussed with the patient and present family. The patient and/or present family expressed understanding of the diagnosis and plan. The nurse was instructed to provide written instructions and appropriate follow-up information. The patient understands their need and responsibility to obtain additional follow-up as instructed. The risks of medications administered and prescribed were discussed with the patient and family present. Vital Signs Vital signs: Vital Signs Temperature 98.0 F 05/16/23 17:17 Pulse Rate 102 H 05/16/23 17:17 Respiratory Rate 16 05/16/23 17:17 Blood Pressure 139/102 H 05/16/23 17:17 Pulse Oximetry 98 05/16/23 17:17 Oxygen Delivery Room Air 05/16/23 17:17 Temperature 98.0 F 05/16/23 17:17 Pulse Rate 102 H 05/16/23 17:17 Respiratory Rate 16 05/16/23 17:17 Blood Pressure 139/102 H 05/16/23 17:17 Pulse Oximetry 98 05/16/23 17:17 Oxygen Delive
[2023-05-16 18:10] VITALS: PULSE 88; RESP 16; O2SAT 99
== END 2023-05-16 18:12 | disposition home or self-care (01) ==
PROVIDERS: Emergency Provider Student in an Organized Health Care Education/Training Program; PCP Physician Assistant
DX: M25.511 Pain in right shoulder (principal)
CPT/HCPCS: 73030; 93005; 96372; 99283; A4565; J1885

== ENCOUNTER 2023-05-21 13:17 | Emergency (ER) | payer OTHER, SELFPAY ==
[2023-05-21 13:20] VITALS: O2SAT 99
--- NOTE | 2023-05-21 13:21 | ED.URI ---
HPI - URI/Sore Throat General Chief Complaint: Upper Respiratory Infection Stated Complaint: FLU Time Seen by Provider: 05/21/23 13:20 Source: patient Mode of arrival: ambulatory Limitations: no limitations History of Present Illness HPI Narrative: Patient is a 48-year-old male with body aches and pains. Fever and chills. Coughing congestion. MD elicited complaint: fever and cough Onset (ago): day(s) (1) Consistency: constant Severity: moderate Description of mucous: clear Able to tolerate fluids by mouth: Yes Exacerbating factors: nothing Relieving factors: nothing Associated symptoms: fever, chills, myalgias, headache, nasal congestion, sore throat and nausea Treatments prior to arrival: none Related Data Allergies Allergy/AdvReac Type Severity Reaction Status Date / Time No Known Allergies Allergy Verified 05/21/23 13:24 Review of Systems Review of Systems: All systems reviewed & are unremarkable except as noted in HPI and below Constitutional: Constitutional: Reports no additional constitutional complaints Eyes: Eyes: Reports no additional eye complaints ENT: Reports system reviewed and no additional complaints, except as documented Cardiovascular: Cardiovascular: Reports no additional cardiovascular complaints Respiratory: Respiratory: Reports no additional respiratory complaints Gastrointestinal: Gastrointestinal: Reports no additional gastrointestinal complaints Genitourinary: Genitourinary: Reports no additional male genitourinary complaints Musculoskeletal: Musculoskeletal: Reports no additional musculoskeletal complaints Integumentary/Breasts: Skin/Breast: Reports system reviewed and no additional complaints, except as docu Neurologic: Reports system reviewed and no additional complaints, except as documented Psychiatric: Psychiatric: Reports no additional psychiatric complaints Endocrine: Endocrine: Reports no additional endocrine complaints Hematologic/Lymphatic: Hematologic/Lymphatic: Reports no additional hematologic/lymphatic complaints Allergic/Immunologic: Allergic/Immunologic: Reports no additional allergic/immunologic complaints PMFSH Past Medical History Medical History Perforated ulcer of intestine Tobacco abuse Exam Const: General: no acute distress and ill appearing Nutritional Appearance: well nourished Orientation/consciousness: patient oriented x3 HENMT: Head: normal to inspection Ears: external ears normal Face/Nose/Sinus: Normal external nose present Eyes: Conjunctivae: conjunctivae normal Pupils: Equal, round and reactive pupils present EOM: EOMs intact bilaterally Neck: Neck: normal visual inspection Chest: Chest palpation & inspection: normal inspection of the chest Resp: Effort & Inspection: normal respiratory effort Auscultation: clear to auscultation bilaterally Cardio: Rate: regular rate Rhythm: regular rhythm Heart sounds: no murmurs GI: Inspection: non-distended GI Palp: Yes Soft to palpation and No Tenderness to palpation present (GI) Auscultation: normal bowel sounds : General: Yes bladder normal to palpation Back/Spine/Pelvis: Back: no CVA tenderness Skin: General skin exam: normal color Rashes: no rashes Wounds: no wounds Neuro: General: patient oriented x3 Cranial nerves: Yes Nystagmus not present Speech: normal speech Extrem: General: normal to inspection Psych: Mental Status: mental status grossly normal Affect: normal affect Attitude: cooperative Course Vital Signs Vital signs: Vital Signs Pulse Oximetry 99 05/21/23 13:20 Oxygen Delivery Room Air 05/21/23 13:20 Pulse Oximetry 99 05/21/23 13:20 Oxygen Delivery Room Air 05/21/23 13:20 MDM - URI/Sore Throat MDM Narrative Medical decision making narrative: Patient is a 48-year-old male that was exposed to influenza yesterday. Family member was here and had a positive influenza
[2023-05-21 14:12] LABS: Influenza Control Valid (Valid)
[2023-05-21 14:47] LABS: SARS-CoV-2 Ag Negative (Negative)
[2023-05-21 15:15] VITALS: BP 146/90; PULSE 87; RESP 20; TEMP 36.9; O2SAT 96
== END 2023-05-21 15:16 | disposition home or self-care (01) ==
PROVIDERS: Emergency Provider Emergency Medicine; PCP Family Medicine
DX: J10.1 Influenza due to other identified influenza virus with other respiratory manifestations (principal); Z20.822 Contact with and (suspected) exposure to COVID-19
CPT/HCPCS: 87426; 87804; 99283; C9803

== ENCOUNTER 2023-09-23 07:47 | Outpatient (CLI) | payer OTHER, SELFPAY ==
--- NOTE | ~2023-09-23 | MR_ITS ---
MRI of the brain Clinical History: Headache Technique: Axial and sagittal T1-weighted images were acquired. These were followed by axial T2-weigh jeanne, diffusion weighted, gradient, and FLAIR images. Findings: Several sequences are degraded by motion artifact. No acute infarct, intracranial hemorrhag e, or mass lesion identified. No definite abnormal signal seen in the brain parenchyma. Ventricles and subarachnoid spaces are nondilated. Orbits are unremarkable. There is mucosal disease in the right sphenoid sinus, left maxillary sinus, and left frontal sinus. Mastoid air cells are jordi r. Major intracranial flow voids are grossly intact. Sagittal midline structures are intact. IMPRESSION: No intracranial abnormality evident. Sinus disease, as above. Reviewed, dictated and finalized at location .
== END 2023-09-23 07:48 | disposition home or self-care (01) ==
LOC: CHSIMG 07:52
PROVIDERS: PCP Physician Assistant; Visit Provider Physician Assistant
DX: R51.9 Headache, unspecified (principal); J32.9 Chronic sinusitis, unspecified
CPT/HCPCS: 70551

== ENCOUNTER 2024-03-06 03:22 | Emergency (ER) | payer OTHER, SELFPAY ==
--- NOTE | ~2024-03-06 | CT_ITS ---
Non-contrast Head CT History: Head injury COMPARISON: 02/15/2022 Technique: Axial non-contrast imaging of the brain was performed. Dose reduction technique was used on this scan by utilizing automated exposure control and iterative reconstruction technique. The dose -length product (DLP) was 605.33 mGy-cm. Findings: There is no evidence of intracranial hemorrhage, mass lesion, or acute infarct. Brain par enchyma appears normal. The ventricles and subarachnoid spaces are normal in size. The calvarium ap pears normal. There is minimal left frontal and left maxillary sinus disease. The remaining visualize d paranasal sinuses and mastoid air cells are clear. Impression: No intracranial abnormality seen. Minimal sinus disease, as above. Reviewed, dictated and finalized at location . Impression: No intracranial abnormality seen. Minimal sinus disease, as above.
--- NOTE | ~2024-03-06 | CT_ITS ---
Noncontrast CT scan of the thoracolumbar spine CLINICAL HISTORY: Trauma TECHNIQUE: Axial noncontrast imaging of the thoracolumbar 2spine was performed. Sagittal and coronal reformatted images were constructed. Dose reduction technique was used on this scan by utilizing auto mated exposure control and iterative reconstruction technique. The dose-length product (DLP) was 728. 18 mGy-cm. FINDINGS: There is no fracture or subluxation in cervical spine. Vertebral bodies maintain normal hei ght and alignment. There are minimal scattered degenerative disc disease. No spinal canal stenosis or cord compression evident. Neural foramina are relatively well preserved throughout the thoracolumbar spine. Paravertebral soft tissues are unremarkable. Impression: No acute abnormality. Reviewed, dictated and finalized at location . Impression: No acute abnormality.
--- NOTE | ~2024-03-06 | CT_ITS ---
Noncontrast CT scan of the cervical spine Technique: Multiple contiguous axial [address] images of the cervical spine were obtained and rec onstructed in 2D sagittal and coronal planes on the acquisition scanner. Dose reduction technique was used on this scan by utilizing automated exposure control, adjustment of the mA and/or kV according to patient size. The dose-length product (DLP) was 338.72 mGy-cm. Clinical History: Pain Findings: No fractures or dislocations. There is straightening of the normal cervical lordosis. Unre markable visualized bony structures otherwise. The intervertebral disc spaces are preserved. No prev ertebral soft tissue swelling. Impression: No fracture or subluxation of the cervical spine. Reviewed, dictated and finalized at location M. Impression: No fracture or subluxation of the cervical spine.
[2024-03-06 03:25] VITALS: BP 142/93; PULSE 83; RESP 20; TEMP 36.6; O2SAT 98
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
[2024-03-06] MEDS: ONDANSETRON HCL ODT 4 MG TABLET PO (03:46)
[2024-03-06] MEDS: KETOROLAC (*BKC) 60 MG/2 ML VIAL IM (03:48)
[2024-03-06 04:52] VITALS: BP 140/89; PULSE 77; RESP 18; O2SAT 99
== END 2024-03-06 04:52 | disposition home or self-care (01) ==
PROVIDERS: Emergency Provider Emergency Medicine; PCP Physician Assistant
DX: S06.0X0A Concussion without loss of consciousness, initial encounter (principal); M54.50 Low back pain, unspecified; S16.1XXA Strain of muscle, fascia and tendon at neck level, initial encounter; V89.2XXA Person injured in unspecified motor-vehicle accident, traffic, initial encounter
CPT/HCPCS: 70450; 72125; 72128; 72131; 96372; 99284; A9270; J1885

== ENCOUNTER 2024-03-21 16:53 | Emergency (ER) | payer OTHER, SELFPAY ==
[2024-03-21 17:01] VITALS: BP 129/78; PULSE 95; RESP 16; TEMP 36.8; O2SAT 98
--- NOTE | 2024-03-21 17:53 | ED.WOUNDLAC ---
HPI - Wound/Laceration General Chief Complaint: Wound/Laceration Stated Complaint: Foreign Body in Finger Time Seen by Provider: 03/21/24 17:40 Source: patient, RN notes reviewed and old records reviewed Mode of arrival: ambulatory Limitations: no limitations History of Present Illness HPI narrative: 49 year old male who presents to express care with complaints of 2-3 days history of some pain and swelling to the left 2nd finger watkins aspect at DIP. 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 Patient reports no tingling or numbness to his left 2nd finger movement intact. Onset (ago): day(s) (2-3 days) Location: other (2nd left finger watkins aspect at DIP) Place: work Associated symptoms: pain, suspect foreign body present and other (swelling) Related Data Allergies Allergy/AdvReac Type Severity Reaction Status Date / Time No Known Allergies Allergy Verified 05/21/23 13:24 Review of Systems Review of Systems: CONSTITUTIONAL: Denies fever, chills, or sweats. CARDIOVASCULAR: Denies chest pain, palpitations, or edema. RESPIRATORY: Denies cough or dyspnea. GASTROINTESTINAL: Denies abdominal pain, nausea, vomiting SKIN: Reports redness and swelling with some pain to the 2nd left finger watkins aspect at DIP joint area, no drainage noted. Denies purulent drainage or, pain beyond proportion MUSCULOSKELETAL: Denies myalgia. NEUROLOGIC: Denies headache, numbness All systems reviewed & are unremarkable except as noted in HPI and below PMFSH Past Medical History Medical History Perforated ulcer of intestine Tobacco abuse Social History Social History (Updated 03/23/24 @ 09:22 by Dora Machado NP) Smoking status: Current every day smoker Tobacco type: cigarettes Gender identity (if verbalized by the patient): Male Comments At time of signature, agree with nursing past medical, surgical, social and family history. There is no relevant family history pertinent to the presenting complaint Exam Narrative: GENERAL: Well-appearing, well-nourished, and in no acute distress. HEAD: Normocephalic, atraumatic. EYES: PERRLA and EOMI. ENT: Nares clear, no rhinorrhea or epistaxis. Mucous membranes moist. NECK: Supple. no lymphadenopathy CHEST: Clear to auscultation. No respiratory distress. SAO2 98% on room air HEART: Regular rate and rhythm. No murmur heard. Normal peripheral pulses. ABDOMEN: Soft, nontender, nondistended, normal active bowel sounds. EXTREMITIES: Normal range of motion. No edema. SKIN: Warm, dry. Erythema, induration, tenderness, warmth with no drainage noted to left 2nd finger watkins aspect at DIP, nail bed has brisk capillary, no tingling or numbness to finger able to move on own power. NEURO: No focal deficits. Alert and oriented x3. Course Course Emergency Course: Patient is aware of diagnosis, understands and agrees to treatment plan. Anticipatory guidance given. Patient agrees to follow-up as directed and is aware of reasons to seek care at the emergency department. Portions of this record may have been created with voice recognition software Level of Care: Express Care Visit Vital Signs Vital signs: Vital Signs Temperature 36.8 C 03/21/24 17:01 Pulse Rate 95 03/21/24 17:01 Respiratory Rate 16 03/21/24 17:01 Blood Pressure 129/78 03/21/24 17:01 Pulse Oximetry 98 03/21/24 17:01 Oxygen Delivery Room Air 03/21/24 17:01 Temperature 36.8 C 03/21/24 17:01 Pulse Rate 95 03/21/24 17:01 Respiratory Rate 16 03/21/24 17:01 Blood Pressure 129/78 03/21/24 17:01 Pulse Oximetry 98 03/21/24 17:01 Oxygen Delivery Room Air 03/21/24 17:01 Reviewed Procedures Other Procedure Procedure 1: Other Procedure: left distal watkins in
--- NOTE | 2024-03-21 18:13 | PC.NURSE ---
Provider attempted to locate wood splinter without luck. Bandaide applied after.
== END 2024-03-21 18:24 | disposition home or self-care (01) ==
PROVIDERS: Emergency Provider Registered Nurse
DX: L08.9 Local infection of the skin and subcutaneous tissue, unspecified (principal); R22.32 Localized swelling, mass and lump, left upper limb; F17.210 Nicotine dependence, cigarettes, uncomplicated
CPT/HCPCS: 99213; G0463

== ENCOUNTER 2024-05-07 21:05 | Emergency (ER) | payer OTHER, SELFPAY ==
--- NOTE | ~2024-05-07 | XR_ITS ---
Left Hand Technique: PA, oblique, and lateral views were obtained. Clinical History: Injury Findings: No acute fracture or dislocation is seen. Osseous alignment is anatomic. Joint spaces are p reserved. There is a space small focal metallic foreign body at the volar aspect of the third finger at the level of the DIP joint.. Impression: Small metallic foreign body in the third digit, as detailed above. Reviewed, dictated and finalized at location M. [employer] Impression: Small metallic foreign body in the third digit, as detailed above.
[2024-05-07 21:07] VITALS: BP 147/79; PULSE 85; RESP 18; TEMP 36.4; O2SAT 97
--- NOTE | 2024-05-07 21:17 | ED_ITS ---
HPI - Extremity Injury (Upper) General Chief Complaint: Upper Respiratory Infection Stated Complaint: left hand injury Time Seen by Provider: 05/07/24 21:16 History of Present Illness HPI narrative: error Related Data Home Medications Medication Instructions Recorded Confirmed No Home Medications 05/07/24 05/07/24 Allergies Allergy/AdvReac Type Severity Reaction Status Date / Time No Known Allergies Allergy Verified 05/07/24 21:25 [facility] Past Medical History Medical History Perforated ulcer of intestine Tobacco abuse Social History Social History (Updated 03/23/24 @ 09:22 by Dora Machado NP) Smoking status: Current every day smoker Tobacco type: cigarettes Gender identity (if verbalized by the patient): Male Course Vital Signs Vital signs: Vital Signs Temperature 36.4 C L 05/07/24 21:07 Pulse Rate 85 05/07/24 21:07 Respiratory Rate 18 05/07/24 21:07 Blood Pressure 147/79 H 05/07/24 21:07 Pulse Oximetry 97 05/07/24 21:07 Oxygen Delivery Room Air 05/07/24 21:07 Temperature 36.4 C L 05/07/24 21:07 Pulse Rate 85 05/07/24 21:07 Respiratory Rate 18 05/07/24 21:07 Blood Pressure 147/79 H 05/07/24 21:07 Pulse Oximetry 97 05/07/24 21:07 Oxygen Delivery Room Air 05/07/24 21:07 Discharge Plan Discharge Clinical Impression: Viral infection Patient Disposition: Home, Self-Care Condition: Stable Instructions: Antibiotic Form Prescriptions: No Action No Home Medications Follow-up/Referrals: UNKNOWN,DOCTOR [Primary Care Provider] -
--- NOTE | 2024-05-07 21:30 | ED.UPPEXIN ---
HPI - Extremity Injury (Upper) General Chief Complaint: Extremity Injury, Upper Stated Complaint: left hand injury Time Seen by Provider: 05/07/24 21:16 Source: patient Mode of arrival: ambulatory Limitations: no limitations History of Present Illness HPI narrative: Patient is a 49-year-old male with a left hand injury with a drill that went in his palm surface to the bone and he reversed it. This occurred 2 days ago. He was told to come to the emergency room for an x-ray and a tetanus shot 2 days ago. He came to the ER at this time 2 days later for evaluation. He has some swelling and pain in the site. No other complaints. complaint: injury to: left and hand ( Palm surface) Onset (ago): day(s) (2) Other injuries: none Place: home and work Severity: moderate Severity scale (1-10): 4 Relieving factors: immobilization Exacerbating factors: movement of extremity Context: injury ( he was using a drill that went through the palm surface into the bone of the hand the left) Associated symptoms: denies other symptoms Treatments prior to arrival: other ( none) Related Data Allergies Allergy/AdvReac Type Severity Reaction Status Date / Time No Known Allergies Allergy Verified 05/07/24 21:25 Review of Systems Review of Systems: All systems reviewed & are unremarkable except as noted in HPI and below Constitutional: Constitutional: Reports no additional constitutional complaints Eyes: Eyes: Reports no additional eye complaints ENT: Reports system reviewed and no additional complaints, except as documented Cardiovascular: Cardiovascular: Reports no additional cardiovascular complaints Respiratory: Respiratory: Reports no additional respiratory complaints Gastrointestinal: Gastrointestinal: Reports no additional gastrointestinal complaints Genitourinary: Genitourinary: Reports no additional male genitourinary complaints Musculoskeletal: Musculoskeletal: Reports no additional musculoskeletal complaints Integumentary/Breasts: Skin/Breast: Reports system reviewed and no additional complaints, except as docu Neurologic: Reports system reviewed and no additional complaints, except as documented Psychiatric: Psychiatric: Reports no additional psychiatric complaints Endocrine: Endocrine: Reports no additional endocrine complaints Hematologic/Lymphatic: Hematologic/Lymphatic: Reports no additional hematologic/lymphatic complaints Allergic/Immunologic: Allergic/Immunologic: Reports no additional allergic/immunologic complaints PMFSH Past Medical History Medical History Perforated ulcer of intestine Tobacco abuse Social History Social History Smoking status: Current every day smoker Tobacco type: cigarettes Gender identity (if verbalized by the patient): Male Exam Const: General: healthy appearing Nutritional Appearance: well nourished Orientation/consciousness: patient oriented x3 Limitations: no limitations HENMT: Head: normal to inspection Ears: external ears normal Face/Nose/Sinus: Normal external nose present Eyes: Conjunctivae: conjunctivae normal Pupils: Equal, round and reactive pupils present EOM: EOMs intact bilaterally Neck: Neck: normal visual inspection Chest: Chest palpation & inspection: normal inspection of the chest Resp: Effort & Inspection: normal respiratory effort and not labored Auscultation: clear to auscultation bilaterally and no crackles Cardio: Rate: regular rate Rhythm: regular rhythm Heart sounds: no murmurs GI: Inspection: non-distended GI Palp: Yes Soft to palpation and No Tenderness to palpation present (GI) Auscultation: normal bowel sounds : General: Yes bladder normal to palpation Back/Spine/Pelvis: Back: no CVA tenderness Skin: General skin exam: normal color Rashes: no rashes Wounds: wound noted Other: left hand palmar surface mid palm slightly distal has entry hole which is less than 0.5 cm and as no pus or oozing or abscess; slight swelling of the local area Neuro: General: patient oriented x3, moves all extremities and no meningeal signs Cranial nerves: Yes Nystagmus not present Speech: normal speech Gait exam (Neuro): Normal gait present Extrem: General: normal to inspection, no clubbing, cyanosis or edema and no pedal edema Psych: Mental Status: mental status grossly normal Affect: normal affect Attitude: cooperative Course Vital Signs Vital signs: Vital Signs Oxygen Delivery Room Air 05/07/24 21:05 Temperature 36.4 C L 05/07/24 21:07 Pulse Rate 87 05/07/24 23:29 Respiratory Rate 16 05/07/24 23:29 Blood Pressure 135/75 05/07/24 23:29 Pulse Oximetry 98 05/07/24 23:29 Oxygen Delivery Room Air 05/07/24 23:29 MDM - Extremity Injury (Upper) MDM Narrative Medical decision making narrative: patient is a 49-year-old male with a left hand injury. We will do an x-ray and give him a tetanus at this time. We will do pain management. We will start antibiotics. Imaging Data Attestation: I personally reviewed and interpreted this imaging study as follows: Radiologist's impression: x-ray left hand was negative for acute process ( pending final reading) Discharge Plan Discharge Clinical Impression: Foot injury Qualifiers: Encounter type: initial encounter Laterality: right Qualified Code(s): S99.921A - Unspecified injury of right foot, initial encounter Puncture wound of foot Qualifiers: Encounter type: initial encounter Laterality: right Qualified Code(s): S91.331A - Puncture wound without foreign body, right foot, initial encounter Patient Disposition: Home, Self-Care Condition: Stable Instructions: Antibiotic Form, Puncture Wound (ED) Prescriptions: New hydrocodone-acetaminophen 10-325 mg tablet 1 tablet PO Q8H PRN (Reason: pain) Qty: 20 0RF Rx Instructions: 1/2-1 tab per dose cephalexin 500 mg capsule 500 mg PO TID 10 Days Qty: 30 0RF Follow-up/Referrals: UNKNOWN,DOCTOR [Non-Staff] - Time of Disposition: 23:35
[2024-05-07] MEDS: TETANUS,DIPHTHERIA,AC PERTUSSIS ADULT 0.5 ML (ADACEL) IM (22:31)
[2024-05-07 22:37] VITALS: BP 124/82; PULSE 86; RESP 16; O2SAT 98
[2024-05-07] MEDS: cefTRIAXone 1 GM, LIDOCAINE HCL 1% LOCAL INJ 2.1 ML IM (23:17)
[2024-05-07] MEDS: HYDROcodone/acetaminophen (*CRX) 10-325 MG TABLET 1 TAB PO (23:17)
[2024-05-07 23:29] VITALS: BP 135/75; PULSE 87; RESP 16; O2SAT 98
== END 2024-05-07 23:42 | disposition home or self-care (01) ==
PROVIDERS: Emergency Provider Emergency Medicine; PCP Family Medicine
DX: S61.432A Puncture wound without foreign body of left hand, initial encounter (principal); W29.8XXA Contact with other powered hand tools and household machinery, initial encounter; Z23 Encounter for immunization
CPT/HCPCS: 73130; 90471; 90715; 96372; 99283; A9270; J0696; J2003

== ENCOUNTER 2024-06-28 10:32 | Outpatient (CLI) | payer OTHER, SELFPAY ==
--- NOTE | ~2024-06-28 | CT_ITS ---
EXAMINATION: CT brain wo con DATE: 06/28/2024 10:51 INDICATION: Headache. Dizziness. TECHNIQUE: Computed tomography (CT) of the head was performed without intravenous contrast. The mA wa s adjusted according to patient size. Iterative reconstruction technique was employed. The dose-lengt h product was 605.33 mGy-cm. COMPARISON: Head CT , brain MRI 09/23/2023 FINDINGS: There is no intracranial hemorrhage, acute infarction, or abnormal intracranial mass lesion . The ventricles are normal in size. There is mucosal thickening in the paranasal sinuses. The mastoi d air cells are normal. IMPRESSION: 1. Normal brain. Reviewed, dictated and finalized at location A. E GRADER IMPRESSION: 1. Normal brain.
== END 2024-06-28 10:33 | disposition home or self-care (01) ==
PROVIDERS: PCP Physician Assistant; Visit Provider Physician Assistant
DX: R51.9 Headache, unspecified (principal)
CPT/HCPCS: 70450

== ENCOUNTER 2024-07-07 22:32 | Emergency (ER) | payer OTHER, SELFPAY ==
--- NOTE | ~2024-07-07 | XR_ITS ---
CHEST RADIOGRAPH CLINICAL HISTORY: Chest pain . COMPARISON: None available TECHNIQUE: Single portable view of the chest. FINDINGS The cardiomediastinal silhouette is unremarkable. The lungs are clear. Visualized osseous structures and soft tissues are unremarkable. IMPRESSION: No focal infiltrate or effusion. Reviewed, dictated and finalized at location A. CT MAIL COORDINATOR
[2024-07-07 22:32] VITALS: BP 159/103; PULSE 88; RESP 36; TEMP 36.4; O2SAT 97
--- OUTSIDE RECORDS SUMMARY | 2024-07-07 22:35 | XMS_ITS | Encounter Summary ---
Author Organization [facility] Address [facility] [place] [address] Care Team Providers Care Spike Driver Name Role Phone Saul Lucero MD Primary Care Provider [phone] Benjie Portillo MD Unavailable Unavail able Sudeep Villafana MD Primary Care Provider [phone] Reason for Visit * Reason Onset Date Comments Hospital Follow Up 04/22/2020 Encounter Details Date Type Department Care Team (Late st Contact Info) Description 04/22/2020 Hospital Follow-up Call [facility] [address] [place] [address] Cnythia Wilson, RN Hospital Follow Up Social History Tobacco Use Types Packs/Day Years Used Date Smoking Tobacco: Every Day Cigarettes Smokeless Tobacco: Never Alcohol Use Standard Drinks/Week Comments No 0 (1 standard drink = 0.6 oz pur e alcohol) AUDIT-C Answer Date Recorded Frequency of Alcohol Consumption Never 03/08/2019 Average Number of Drinks Not on file 019 Frequency of Binge Drinking Not on file 01/2019 Sex and Gender Information Value Date Recorded Sex Assigned at Not on file Legal Sex Male 11:57 PM CDT Gender Identity Not on file Sexual Orientation Not on file COVID-19 Exposure Response Date Recorded In the last month, have you been in contact with someone who was confirmed or suspected to have Coronavirus / COVID-19? 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 Answer Date of Assessment Author Status No 04/15/2020 5:00 PM MANAGER PROPERTY Activ e * Do you have serious difficulty walking or climbing stairs? Answer Date of Assessment Author Status Yes 04/15/2020 5:00 PM Sarita Hill RN A ctive * Do you have difficulty dressing or bathing? Answer Date of Assessment Author Status No 04/15/2020 5:00 PM Sarita Hill RN A ctive * Because of a physical, mental, or emotional condition, do you have difficulty doing errands alone such as visiting a doctor's office or shopping? Answer Date of Assessment Author Status No 04/15/2020 5:00 PM Sarita Hill RN A ctive documented as of this encounter Mental Status * Because of a physical, mental, or emotional condition, do you have serious difficulty concentrating, remembering, or making decisions? Answer Entry Date Author Status No 04/15/2020 5:00 PM Sarita Hill RN A ctive documented in this encounter Plan of Treatment Not on file documented as of this encounter Visit Diagnoses Not on filedocumented in this encounter Care Teams Spike Driver Relationship Specialty Start Date End Date Saul Lucero MD [address] [place] [phone] PCP - General FAMILY PRACTICE 02/27/19 06/25/22 Sudeep Villafana MD [address] [place] [phone] PCP - General FAMILY PRACTICE 06/26/22 Benjie Portillo MD [address] [place] [phone] Consulting Physician CARDIOVASCULAR DISEASE 03/02/19 documented as of this encounter
--- OUTSIDE RECORDS SUMMARY | 2024-07-07 22:35 | XMS_ITS | Encounter Summary ---
Author Organization [facility] Address [address] [place] [id number] Care Team Providers Care Electronics Scale Tester Name Role Phone Saul Lucero MD Primary Care Provider [phone] Benjie Portillo MD Unavailable Unavail able Sudeep Villafana MD Primary Care Provider [phone] Encounter Details Date Type Department Care Team (Late st Contact Info) Description 03/08/2019 Abstract [facility] [address] [place] [phone] Abstract, Doc [facility] Social History Tobacco Use Types Packs/Day Years Used Date Smoking Tobacco: Every Day Cigarettes Alcohol Use Standard Drinks/Week Comments No 0 [...] on file Sexual Orientation Not on file documented as of this encounter Plan of Treatment Not on file documented as of this encounter Visit Diagnoses Not on filedocumented in this encounter Additional Health Concerns Infection Onset Date Last Indicated Resolved Time COVID-19 Rule Out 04/15/2020 04/15/2020 04/15/2020 3:35 PM 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
--- OUTSIDE RECORDS SUMMARY | 2024-07-07 22:35 | XMS_ITS | Encounter Summary ---
Author Organization [facility] Address [facility] [place] [address] Care Team Providers Care At&T Retailer Sales Consultant Name Role Phone Saul Lucero MD Primary Care Provider [phone] Ramirez Jackson MD Unavailable [phone] Benjie Portillo MD Unavailable Unavail able Sudeep Villafana MD Primary Care Provider [phone] Encounter Details Date Type Department Care Team (Late st Contact Info) Description 11/05/2018 Abstract [facility] CONVERSION [address] [address] , Generic Conversion, Social History Tobacco Use Types Packs/Day Years Used Date Smoking Tobacco: Never Assessed Sex and Gender Information Value Date Recorded [...] Rule Out 04/15/2020 04/15/2020 04/15/2020 3:35 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
--- OUTSIDE RECORDS SUMMARY | 2024-07-07 22:35 | XMS_ITS | CONTINUITY OF CARE DOCUMENT ---
Author Name josias josias Address Unknown Organization [facility] Address [address] [place] [address] [place] [address] Phone [phone] Care Team Providers Care Textile Designer Name Role Phone josias ferrara Unavailable Unavailable PROBLEMS Condition Status Date Provider Notes SHORTNESS OF BREATH active Michael Alas TOBACCO ABUSE active Michael Alas CHEST PAIN-TYPE TO BE DETERMINED active David Alas ALLERGIES No Known Drug Allergies HISTORY OF MEDICATION USE Medication Status Instructions Dates Provider Indications Com ments COMBIVENT AEROSOL active PRN Michael Alas NITROGLYCERIN 0.4 MG SUBLINGUAL TABLET SUBLINGUAL active PRN Michael Alas ASPIRIN 325 MG ORAL TABLET active one tab daily Michael Alas
--- OUTSIDE RECORDS SUMMARY | 2024-07-07 22:35 | XMS_ITS | Clinical Summary ---
Author Organization [facility] Address [facility] [place] [address] Care Team Providers Care Cellophane Casting Machine Repairer Name Role Phone Sudeep Villafana MD Primary Care Provider Allergies Active Allergy Reactions Criticality Noted Date Comments Bee Venom Anaphylaxis High 07/07/2012 Medications Venlafaxine HCl (VENLAFAXINE XR) 225 MG TABLET SR 24 HR 24 hr tablet Take 150 mg by mouth every morning. 1 01/07/2019 Active traMADol 50 MG tabletIndicatio ns:Acute Pain < 7 Day Supply Take 1 tablet (50 mg total) by mouth every 4 (four) hours as needed. Indications: Acute Pain < 7 Day Supply 30 tablet 04/18/2020 Active HYDROcodone-basim taminophen (NORCO) 5-325 MG tabletIndicatio ns:Acute Pain < 3 Day Supply Take 1-2 tablets by mouth every 6 (six) hours as needed for Pain. Indications: Acute Pain < 3 Day Supply 12 tablet 06/26/2022 Active Active Problems Problem Noted Date Diagnosed Date Abdominal pain 04/14/2020 Perforated duodenal ulcer ([facility]) 03/31 Chest pain, unspecified type 03/15/2019 Immunizations Name Administration Dates Next Due Fluzone 6 Months+ Quad (0.5 mL Prefilled Syringe ) 04/15/2020 Family History Medical History Relation Comments Cancer Father Heart Disease Maternal Grandmother Heart Disease Mother Stroke Mother Heart Disease Paternal Grandfather Relation Status Comments Father Maternal Grandfather Maternal Grandmother Mother Paternal Grandfather Paternal Grandmother Social History Tobacco Use Types Packs/Day Years Used Date Smoking Tobacco: Every Day Cigarettes Smokeless Tobacco: Never Tobacco Cessation:Ready to Q uit: Not Asked; Counseling Given: Not Answered Alcohol Use Standard Drinks/Week Comments No 0 [...] on file Sexual Orientation Not on file Last Filed Vital Signs Vital Sign Reading Time Taken Comments Blood Pressure 129/89 12/31/2022 4:45 PM CDT Pulse 101 12/31/2022 1:40 PM CDT Temperature 37.1 C (98.7 F) 12/31/2022 1:40 PM CDT Respiratory Rate 18 12/31/2022 1:40 PM CDT Oxygen Saturation 97% 12/31/2022 4:45 PM CDT Inhaled Oxygen Concentration - - Weight 72.6 kg (160 lb) 12/31/2022 1:40 PM CDT Height 172.7 cm (5' 8 ) 12/31/2022 1:40 PM CDT Body Mass Index 24.33 12/31/2022 1:40 PM CDT Plan of Treatment Health Maintenance Due Date Last Done Comments Colorectal Cancer Screening Colonoscopy (10 Years) 1975 Annual Physical 1978 Pneumococcal Vaccine: Pediatrics (0 to 5 Years) and At-Risk Patients (6 to 64 Years) (1 of 2 - PCV) 1981 Hepatitis C 1993 Hepatitis B Vaccines (1 of 3 - 19+ 3-dose series) 1994 COVID-19 Vaccine (2023-2 5 season) 2024 01/31/2021, 01/07/2021 Influenza Adult (#1) 2024 04/15/2020, 06/08/2013 DTaP, Tdap and Td Vaccines ( 3 - Td or Tdap) 08/16/2030 08/16/2020, 03/23/2016 Meningococcal B Vaccine Aged Out No l onger eligible based on patient's age to complete this topic Meningococcal Vaccine Aged Out No trace cait eligible based on patient's age to complete this topic RSV Immunizations Under 20 Months Aged Out No longer eligible b ased on patient's age to complete this topic Insurance [facility] Advance Directives Documents on File Type Date Recorded Patient Director Of Student Aid Expl anation Legal Documents 06/13/2018 12:00 AM [employer]IT[employer] ON FOR INVOLUNTARY / JUDICIAL ADM * Full Code (Latest Code Status on File) Date Activated Date Inactivated Comments 04/14/2020 10:43 PM 04/19/2020 1:58 PM * Full Code Date Activated Date Inactivated Comments 04/14/2020 4:01 PM 04/14/2020 10:43 PM Care Teams Cellophane Casting Machine Repairer Relationship Specialty Start Date End Date Sudeep Villafana MD [address] [place] [phone] PCP - General FAMILY PRACTICE 06/26/22
--- OUTSIDE RECORDS SUMMARY | 2024-07-07 22:35 | XMS_ITS | Encounter Summary ---
Author Organization [facility] Address [facility] [place] [address] Care Team Providers Care Vmware Architect Name Role Phone Saul Lucero MD Primary Care Provider [phone] Ramirez Jackson MD Unavailable [phone] Benjie Portillo MD Unavailable Unavail able Sudeep Villafana MD Primary Care Provider [phone] Encounter Details Date Type Department Care Team (Latest Contact Info) Description 04/05/2018 Abstract [facility] , Sofie Ashley MD Social History Tobacco Use Types Packs/Day Years [...] Rule Out 04/15/2020 04/15/2020 04/15/2020 3:35 PM OUTSOLE FLEXER documented as of this encounter Care Teams Vmware Architect Relationship Specialty Start Date End Date Saul Lucero MD [address] [place] [phone] PCP - General FAMILY PRACTICE 02/27/19 06/25/22 Sudeep Villafana MD [address] [place] [phone] PCP - General FAMILY PRACTICE 06/26/22 Ramirez Jackson MD [address] [place] [address] CARDIOVASCULAR DISEASE 02/28/19 9 Benjie Portillo MD [address] [place] [address] Consulting Physician CARDIOVASCULAR DISEASE 03/02/19 12/30/22 documented as of this encounter
--- NOTE | 2024-07-07 22:43 | ECG_ITS ---
Test Date: 2024-07-07 22:40:42 Measurements Intervals Reading Rate: 96 P: 66 CO: 143 QRS: 27 QRSD: 87 T: 56 QT: 319 QTc: 404 Interpretive Statements SINUS RHYTHM BASELINE ARTIFACT- II, III, AVR, AVL, AVF, V1 NORMAL ECG No previous ECG available for comparison Electronically Signed On 07-10-2024 06:31:16 MATERIAL EXPEDITOR by Mark Olguin D.O.
--- NOTE | 2024-07-07 22:43 | ED_ITS ---
HPI - Chest Pain General Chief Complaint: Chest Pain Stated Complaint: chest pain Time Seen by Provider: 07/07/24 22:43 Source: patient History of Present Illness HPI narrative: patient came to the ED with his girlfriend by private car with chest pain. Regular friends telling me that she was talking to him about his brother who have in the stage cancer and currently is dying, subsequently patient start holding his chest screaming of chest pain. History of anxiety/ depression And headache started on amitriptyline yesterday, did not refill the prescription yet. Patient smokes cigarettes, marijuana, does not drink alcohol. No family history of coronary artery disease Patient denies aggravating or relieving factors radiation of pain, complaint: chest discomfort Onset (ago): hour(s) ( 1 hour prior to arrival) Timing of current episode: constant Prior episodes: No Onset: during rest Pain location: parasternal Pain radiation: none Severity: severe Pain scale (0-10): 10 Quality: aching Relieving factors: nothing Exacerbating factors: nothing Treatment prior to arrival: none Risk Factors Coronary artery disease risk factors: smoking history Related Data Allergies Allergy/AdvReac Type Severity Reaction Status Date / Time No Known Allergies Allergy Verified 05/07/24 21:25 Review of Systems 2 Review of Systems: All systems reviewed & are unremarkable except as noted in HPI and below PMFSH Past Medical History Medical History Perforated ulcer of intestine Tobacco abuse Social History Social History Smoking status: Current every day smoker Tobacco type: cigarettes Gender identity (if verbalized by the patient): Male Exam 2 Narrative: General appearance: Well-developed, well-nourished, hyperventilating, Skin: Normal color Head: Normocephalic, nontraumatic Eyes: Clear conjunctiva ENT: Oropharynx normal, ears normal, nose normal Neck: Supple, nontender Chest and respiratory: Airway patent, no respiratory distress, no accessory muscle use Heart: Regular rate/rhythm Abdomen: Soft, nontender, no organomegaly, quiet bowel sounds Vascular: Normal peripheral pulses, normal capillary refill. Musculoskeletal: Normal range of motion, nontender back Neurologic: Alert and oriented ?3, CONVERTER OPERATOR is normal as tested, no gross motor deficit Course Vital Signs Vital signs: Vital Signs Temperature 36.4 C 07/07/24 22:32 Pulse Rate 88 07/07/24 22:32 Respiratory Rate 36 H 07/07/24 22:32 Blood Pressure 159/103 H 07/07/24 22:32 Pulse Oximetry 97 07/07/24 22:32 Oxygen Delivery Room Air 07/07/24 22:32 Temperature 36.4 C 07/07/24 22:32 Pulse Rate 90 07/07/24 23:16 Respiratory Rate 14 07/07/24 23:16 Blood Pressure 132/91 H 07/07/24 23:16 Pulse Oximetry 94 07/07/24 23:16 Oxygen Delivery Nasal Cannula 07/07/24 23:16 Oxygen Flow Rate 2 07/07/24 23:16 MDM - Chest Pain MDM Narrative Medical decision making narrative: Patient came with sudden onset of chest pain while talking to his girlfriend about his brother in the stage cancer condition. Patient was very upset and started having chest pain. Vital signs showing blood pressure 159/1003, respiration 36 otherwise within normal limit physical examination showing patient slumped over holding his chest. Differential diagnosis include anxiety like symptoms, hyperventilation syndrome, less likely coronary artery disease or pulmonary embolism. Blood workup today includes CBC, CMP, D-dimer, troponin showed no significant abnormalities EKG on arrival showed normal sinus rhythm Chest x-ray showed no acute abnormalities, repeated EKG showed no significant abnormality compared to the 1st 1 Patient received 1 mg of Ativan with significant improvement. Currently patient is asymptomatic The pt was discharged to home.the pt,s condition upon discharge was fair,education was provided to the pt in reference to the final impression,discharge study results,treatment,prognosis and need for follow up . Differential Diagnosis Differential diagnosis: Likely other (As above) Medical Records Data Attestation: I reviewed the patient's medical records. Lab Data Attestation: I reviewed the patient's lab results. 07/07/24 22:57 07/07/24 22:57 Labs: Lab Results 07/07/24 Range/Units 22:57 WBC 7.7 (4.8-10.8) K/mm3 RBC 4.54 L (4.70-6.10) M/mm3 Hgb 12.9 L (14.0-18.0) g/dL Hct 39.5 L (40.0-54.0) % MCV 87.0 (78.0-102.0) fL MCH 28.4 (27.0-31.0) pg MCHC 32.7 (32-36) g/dL RDW 12.9 (11.6-14.4) % Plt Count 298 (150-420) K/mm3 MPV 9.2 (8.7-11.0) fl Immature Gran % (Auto) 0.3 H (0.0-0.0) % Neut % (Auto) 55.8 (50.0-70.0) % Lymph % (Auto) 32.7 (18.0-42.0) % [place] % (Auto) 7.8 (2.0-11.0) % Eos % (Auto) 2.0 (1.0-6.0) % Baso % (Auto) 1.4 H (0.0-1.0) % Lymph # (Auto) 2.50 (1.10-4.50) K/mm3 [place] # (Auto) 0.60 (0.10-0.90) K/mm3 Eos # (Auto) 0.15 (0.02-0.50) K/mm3 Baso # (Auto) 0.11 H (0.00-0.10) K/mm3 Abs Immat Gran (auto) 0.02 H (0.00-0.00) K/mm3 Absolute Neuts (auto) 4.27 (1.70-7.20) K/mm3 Absolute Nucleated RBC 0.00 (0.00-0.00) K/mm3 Nucleated RBC % 0.0 (0-0.0) % PT 9.9 (9.50-12.1) Seconds INR 0.9 APTT 22.8 L (23.9-30.70) Sec D-Dimer 0.19 (0.19-0.50) mg/L Sodium 140 (136-145) mmol/L Potassium 3.5 (3.5-5.1) mmol/L Chloride 101 (98-108) mmol/L Carbon Dioxide 27 (21-32) mmol/L Anion Gap 12 (4-12) mmol/L BUN 17 (7-18) mg/dL Creatinine 1.28 (0.70-1.30) mg/dL Estim Creat Clear Calc 60 ml/min Estimated GFR 60 (59 - ) Glucose 112 H (70-99) mg/dL Calculated Osmolality 292 (285-295) mOsm/kg Calcium 9.5 (8.5-10.1) mg/dL Total Bilirubin 0.2 (0.00-1.00) mg/dL AST 24 (15-37) U/L ALT 44 (16-63) U/L Alkaline Phosphatase 85 (46-116) U/L Troponin I 4.6 (0.00-60.4) ng/L Total Protein 7.7 (6.4-8.2) g/dL Albumin 4.3 (3.4-5.0) g/dL Lipase 23 (16-77) U/L Imaging Data Radiologist's impression: Impressions Chest X-Ray 07/07/24 23:16 IMPRESSION: No focal infiltrate or effusion. ECG Data EKG #1: Attestation: I personally reviewed and interpreted this ECG as follows: ECG completion date: 07/07/24 Prior ECG tracings: not available for review Interpretation: normal sinus rhythm at 96 beats per minute, normal EKG, Critical Care Time Critical Care Time Critical Care Time: No Discharge Plan Discharge Clinical Impression: Tobacco abuse, Atypical chest pain, Anxiety-like symptoms Patient Disposition: Home, Self-Care Condition: Improved Instructions: Chest Pain (DC), Anxiety (ED) Additional Instructions: Return if symptoms are worsening , call your family physician for appointment, take Tylenol as as needed for aches and pain, continue home medications. Patient Language: Saudi Arabian Prescriptions: No Action hydrocodone-acetaminophen 10-325 mg tablet 1 tablet PO Q8H PRN (Reason: pain) Qty: 20 0RF Rx Instructions: 1/2-1 tab per dose cephalexin 500 mg capsule 500 mg PO TID 10 Days Qty: 30 0RF Follow-up/Referrals: Ledy,MD Sudeep [Primary Care Provider] - Quality HEART score for chest pain patients History: slightly suspicious ECG: normal Age: > 45 and < 65 years Risk factors: 1 or 2 risk factors Troponin: < or = to 1x normal limit Heart score: 2
--- OUTSIDE RECORDS SUMMARY | 2024-07-07 22:50 | XMS_ITS | CONTINUITY OF CARE DOCUMENT ---
Author Name josias josias Address Unknown Organization [facility] Address [id number] [place] [address] [place] [address] Phone [phone] Care Team Providers Care Licensed Physical Therapist Assistant Name Role Phone josias ferrara Unavailable Unavailable [...]
[2024-07-07 23:00] LABS: Basophils Absolute Auto 0.11 K/mm3 (0.00-0.10); Basophils Percent Auto 1.4 % (0.0-1.0); Eosinophils Absolute Auto 0.15 K/mm3 (0.02-0.50); Hematocrit 39.5 % (40.0-54.0); Hemoglobin 12.9 g/dL (14.0-18.0); Immature Granulocyte Absolute 0.02 K/mm3 (0.00-0.00); Immature Granulocyte Percent A 0.3 % (0.0-0.0); Lymphocytes Percent Auto 32.7 % (18.0-42.0); Mean Corpuscular HGB Conc 32.7 g/dL (32-36); Mean Corpuscular Hemoglobin 28.4 pg (27.0-31.0); Mean Platelet Volume 9.2 fl (8.7-11.0); Monocytes Percent Auto 7.8 % (2.0-11.0); Neutrophils Absolute Auto 4.27 K/mm3 (1.70-7.20); Neutrophils Percent Auto 55.8 % (50.0-70.0); Platelet Count Result 298 K/mm3 (150-420); Red Blood Count 4.54 M/mm3 (4.70-6.10); Red Cell Distribution Width 12.9 % (11.6-14.4); White Blood Count 7.7 K/mm3 (4.8-10.8)
[2024-07-07] MEDS: LORazepam INJ (*CRX) 2 MG/ML VIAL 1 MG IV PUSH (23:01)
[2024-07-07 23:13] LABS: D Dimer 0.19 mg/L (0.19-0.50); INR 0.9; Partial Thromboplastin Time 22.8 Sec (23.9-30.70); Prothrombin Time 9.9 Seconds (9.50-12.1)
[2024-07-07 23:16] VITALS: BP 132/91; PULSE 90; RESP 14; O2SAT 94
[2024-07-07 23:18] LABS: Alanine Aminotransferase 44 U/L (16-63); Albumin Level 4.3 g/dL (3.4-5.0); Alkaline Phosphatase 85 U/L (46-116); Anion Gap 12 mmol/L (4-12); Aspartate Amino Transferase 24 U/L (15-37); Bilirubin,Total 0.2 mg/dL (0.00-1.00); Blood Urea Nitrogen 17 mg/dL (7-18); Calcium 9.5 mg/dL (8.5-10.1); Carbon Dioxide 27 mmol/L (21-32); Chloride 101 mmol/L (98-108); Estimated CRCL calculation 60 ml/min; Estimated Glomerular Filt Rate 60; Glucose 112 mg/dL (70-99); Lipase 23 U/L (16-77); Osmolality Calculated 292 mOsm/kg (285-295); Potassium 3.5 mmol/L (3.5-5.1); Sodium 140 mmol/L (136-145); Total Protein 7.7 g/dL (6.4-8.2); Troponin I 4.6 ng/L (0.00-60.4)
[2024-07-07 23:31] VITALS: BP 136/91; PULSE 87; RESP 12; O2SAT 100
--- NOTE | 2024-07-07 23:38 | PC.NURSE ---
PATIENT IS CURRENTLY RESTING ON STRETCHER WITH EYES CLOSED. RESP EVEN AND UNLABORED. GIRLFRIEND AT HIS SIDE. CALL LIGHT IN REACH
[2024-07-07 23:46] VITALS: BP 130/88; PULSE 90; RESP 13; O2SAT 100
--- NOTE | 2024-07-07 23:47 | ECG_ITS ---
Test Date: 2024-07-08 00:02:13 Measurements Intervals [place] Rate: 93 P: 69 FL: 144 QRS: 30 QRSD: 88 T: 61 QT: 327 QTc: 408 Interpretive Statements SINUS RHYTHM NORMAL ECG Compared to ECG 07/07/2024 22:40:42 No significant changes Electronically Signed On 07-10-2024 06:32:54 FIELD MARKETING ASSOCIATE by Mark Olguin D.O.
[2024-07-07 23:56] LABS: Influenza A QL RT-PCR Negative (Negative); Influenza B QL RT-PCR Negative (Negative); RSV RNA, RT-PCR Negative (Negative); SARS-CoV-2 RNA PCR Negative (Negative)
[2024-07-08 00:01] VITALS: BP 145/93; PULSE 96; RESP 16; O2SAT 100
== END 2024-07-08 00:13 | disposition home or self-care (01) ==
PROVIDERS: Emergency Provider Emergency Medicine; PCP Family Medicine
DX: R07.89 Other chest pain (principal); F17.210 Nicotine dependence, cigarettes, uncomplicated; Z20.822 Contact with and (suspected) exposure to COVID-19
CPT/HCPCS: 36415; 71045; 80053; 83690; 84484; 85025; 85380; 85610; 85730; 87637; 93005; 96374; 99284; J2060

== ENCOUNTER 2024-11-04 16:27 | Emergency (ER) | payer OTHER, SELFPAY ==
--- OUTSIDE RECORDS SUMMARY | 2024-11-04 16:30 | XMS_ITS | CONTINUITY OF CARE DOCUMENT ---
Author Name josias josias Address Unknown Organization [facility] Address [address] [place] [address] [place] [address] Phone [phone] Care Team Providers Care Respiratory Therapy Technician Name Role Phone josias ferrara Unavailable Unavailable PROBLEMS Condition Status Date Provider Notes SHORTNESS OF BREATH active Michael Alas TOBACCO ABUSE active Michael Alas CHEST PAIN-TYPE TO BE DETERMINED active David Alas ALLERGIES No Known Drug Allergies HISTORY OF MEDICATION USE Medication Status Instructions Dates Provider Indications Com ments COMBIVENT AEROSOL active PRN Michael Alas NITROGLYCERIN 0.4 MG SUBLINGUAL TABLET SUBLINGUAL active PRN Mcihael Alas ASPIRIN 325 MG ORAL TABLET active one tab daily Michael Alas
--- NOTE | 2024-11-04 16:33 | ED_ITS ---
HPI - Wound/Laceration General Chief Complaint: Wound/Laceration Stated Complaint: lac Time Seen by Provider: 11/04/24 16:32 Source: patient and EMS Mode of arrival: ambulatory Limitations: no limitations History of Present Illness HPI narrative: 49-year-old male presents to the ED with a 3 cm superficial laceration of his left forearm. He was using a machete to cut the branches of a tree when it slipped and accidentally hit his left forearm. Patient is up-to-date on his tetanus immunization. No other injuries noted. Onset (ago): minute(s) ( 80 minutes ago) Extremity Location: Left: forearm Body four view annotation: 2 1. 3 cm superficial laceration over the left forearm Place: home Patient tetanus UTD: Yes Context: accidental Associated symptoms: none and pain Related Data Home Medications ?Medication ?Instructions ?Recorded ?Confirmed ?Last Taken ?Type No Home Medications 11/04/24 11/04/24 Unknown History Allergies Allergy/AdvReac Type Severity Reaction Status Date / Time No Known Allergies Allergy Verified 11/04/24 16:40 Review of Systems 2 Review of Systems: All systems reviewed & are unremarkable except as noted in HPI and below PMFSH Past Medical History Medical History Perforated ulcer of intestine Tobacco abuse Social History Social History Smoking status: Current every day smoker Tobacco type: cigarettes Gender identity (if verbalized by the patient): Male Exam 2 Narrative: vitals are stable Const: General: healthy appearing Nutritional Appearance: well nourished Orientation/consciousness: patient oriented x3 Limitations: no limitations HENMT: Head: normal to inspection Ears: external ears normal F basim/Nose/Sinus: Normal external nose present Face and sinus: normal facial exam Mouth: Yes Normal oral and palatal mucosa present Throat: posterior oropharynx normal Eyes: Conjunctivae: conjunctivae normal Pupils: Equal, round and reactive pupils present EOM: EOMs intact bilaterally Neck: Neck: normal visual inspection Chest: Chest palpation & inspection: normal inspection of the chest Resp: Effort & Inspection: normal respiratory effort Auscultation: clear to auscultation bilaterally Cardio: Rate: regular rate Rhythm: regular rhythm GI: GI Palp: Yes Soft to palpation Auscultation: normal bowel sounds O ther: no tenderness/rigidity /rebound Back/Spine/Pelvis: Back: no CVA tenderness Skin: General skin exam: normal color Other: 3 cm superficial laceration over the left distal forearm. Distal neurovascular bundle is intact. Neuro: General: patient oriented x3, moves all extremities, no meningeal signs, no focal motor deficits and CN's II-XI intact bilaterally Cranial nerves: Yes Nystagmus not present Speech: normal speech Extrem: General: normal to inspection and no clubbing, cyanosis or edema O ther: 3 cm superficial laceration over the left distal forearm Psych: Mental Status: mental status grossly normal Affect: normal affect Attitude: cooperative Course Course Emergency Course: forearm laceration Vital Signs Vital signs: Vital Signs Temperature 36.5 C 11/04/24 16:36 Pulse Rate 96 11/04/24 16:36 Respiratory Rate 16 11/04/24 16:36 Blood Pressure 133/85 11/04/24 16:36 Pulse Oximetry 99 11/04/24 16:36 Oxygen Delivery Room Air 11/04/24 16:36 Temperature 36.5 C 11/04/24 16:36 Pulse Rate 96 11/04/24 16:36 Respiratory Rate 16 11/04/24 16:36 Blood Pressure 133/85 11/04/24 16:36 Pulse Oximetry 99 11/04/24 16:36 Oxygen Delivery Room Air 11/04/24 16:36 Procedures Laceration Laceration 1: Date: 11/04/24 Time: 16:39 Site: upper extremity Side (If applicable): left Size (cm): 3 Description: linear Depth: simple, single layer ====== Skin Level ====== Skin layer closed with: dermabond ====== Subcutaneous Layer ====== ====== Muscle Layer ====== ====== Tendon Layer ====== MDM - Wound/Laceration MDM Narrative Medical decision making narrative: forearm superficial laceration Differential Diagnosis Differential diagnosis: Likely abrasion Discharge Plan Discharge Clinical Impression: Forearm laceration Patient Disposition: Home Condition: Stable Instructions: Antibiotic Form, Laceration (ED) Patient Language: Bahamian Prescriptions: No Action hydrocodone-acetaminophen 10-325 mg tablet 1 tablet PO Q8H PRN (Reason: pain) Qty: 20 0RF Rx Instructions: 1/2-1 tab per dose cephalexin 500 mg capsule 500 mg PO TID 10 Days Qty: 30 0RF Follow-up/Referrals: Ledy,MD Sudeep [Primary Care Provider] - Time of Disposition: 16:38
[2024-11-04 16:36] VITALS: BP 133/85; PULSE 96; RESP 16; TEMP 36.5; O2SAT 99
--- OUTSIDE RECORDS SUMMARY | 2024-11-04 16:44 | XMS_ITS | CONTINUITY OF CARE DOCUMENT ---
Author Name josias josias Address Unknown Organization [facility] Address [address] [place] [address] [place] [address] Phone [phone] Care Team Providers Care Senior Java Web Developer Name Role Phone josias ferrara Unavailable Unavailable [...]
== END 2024-11-04 16:45 | disposition home or self-care (01) ==
LOC: CHSED 16:42
PROVIDERS: Emergency Provider Internal Medicine Critical Care Medicine; PCP Family Medicine
DX: S51.812A Laceration without foreign body of left forearm, initial encounter (principal); F17.210 Nicotine dependence, cigarettes, uncomplicated; W22.8XXA Striking against or struck by other objects, initial encounter
CPT/HCPCS: 12002; 99282

== ENCOUNTER 2024-11-23 12:51 | Emergency (ER) | payer OTHER, SELFPAY ==
--- NOTE | ~2024-11-23 | XR_ITS ---
XR chest 2V Ordering provider: Brock Bearden MD History: 49 years Male with . shortness of breath . Comparison: None. FINDINGS: MEDIASTINUM: The cardiac silhouette is not enlarged. LUNGS: No infiltrates, effusions or pneumothorax. OTHER: No free air under the diaphragm. IMPRESSION: No acute cardiopulmonary pathology. Reviewed, dictated and finalized at location A.
--- NOTE | ~2024-11-23 | CT_ITS ---
EXAMINATION: CT abdomen pelvis wo con DATE: 11/23/2024 13:18 INDICATION: Right lower rib and flank pain TECHNIQUE: Computed tomography (CT) of the abdomen and pelvis was performed without intravenous contr ast. Automated exposure control and iterative reconstruction technique were employed. The dose-length product was 266.34 mGy-cm. COMPARISON: None FINDINGS: Mild discoid atelectasis at the posterior sulcus of the right lower lobe. The visualized inferior hea rt is normal. No pericardial or pleural effusion. Liver, gallbladder, spleen, pancreas and bilateral adrenal glands are normal. Kidneys and ureters are normal with no urolithiasis, hydroureteronephrosis or perinephric/ureteral stranding. Large amount of colonic stool which can be seen with constipation . No abnormal bowel wall thickening or obstruction. No free intraperitoneal gas or fluid. No patholog ically enlarged abdominal or pelvic lymphadenopathy. Scattered minimal to mild degenerative skeletal changes in the spine and pelvis. Bone islands at the left femoral head and right acetabulum. IMPRESSION: 1. Large moderate colonic stool which could be seen with constipation. No urolithiasis or other acute intra-abdominal/pelvic process. Reviewed, dictated and finalized at location A. IMPRESSION: 1. Large moderate colonic stool which could be seen with constipation. No uroli thiasis or other acute intra-abdominal/pelvic process.
[2024-11-23 12:51] VITALS: BP 136/90; PULSE 75; RESP 18; TEMP 36.3; O2SAT 100
--- NOTE | 2024-11-23 12:59 | ECG_ITS ---
Test Date: 2024-11-23 13:28:09 Measurements Intervals [place] Rate: 61 P: 52 [place]: 162 QRS: 73 QRSD: 87 T: 10 QT: 375 QTc: 381 Interpretive Statements SINUS RHYTHM MINIMAL Q WAVES- INFERIOR LEADS BASELINE ARTIFACT- I, II, III BORDERLINE ECG Compared to ECG 07/08/2024 00:02:13 No significant changes Electronically Signed On 11-23-2024 13:45:18 CDT by Mark Olguin D.O.
[2024-11-23 13:26] LABS: Basophils Absolute Auto 0.09 K/mm3 (0.00-0.10); Eosinophils Absolute Auto 0.24 K/mm3 (0.02-0.50); Eosinophils Percent Auto 2.8 % (1.0-6.0); Hematocrit 41.6 % (40.0-54.0); Hemoglobin 13.3 g/dL (14.0-18.0); Immature Granulocyte Absolute 0.04 K/mm3 (0.00-0.00); Immature Granulocyte Percent A 0.5 % (0.0-0.0); Lymphocytes Absolute Auto 1.93 K/mm3 (1.10-4.50); Lymphocytes Percent Auto 22.3 % (18.0-42.0); Mean Corpuscular Hemoglobin 28.5 pg (27.0-31.0); Mean Corpuscular Volume 89.3 fL (78.0-102.0); Mean Platelet Volume 9.2 fl (8.7-11.0); Monocytes Absolute Auto 0.69 K/mm3 (0.10-0.90); Neutrophils Absolute Auto 5.65 K/mm3 (1.70-7.20); Neutrophils Percent Auto 65.4 % (50.0-70.0); Platelet Count Result 279 K/mm3 (150-420); Red Blood Count 4.66 M/mm3 (4.70-6.10); Red Cell Distribution Width 13.2 % (11.6-14.4); White Blood Count 8.6 K/mm3 (4.8-10.8)
[2024-11-23 13:30] VITALS: BP 139/96; PULSE 63; RESP 17; O2SAT 100
[2024-11-23] MEDS: SODIUM CHLORIDE 0.9% IV 1,000 ML 999 ML IV CONT (13:31)
[2024-11-23] MEDS: KETOROLAC 30 MG/ML VIAL (*BKC) IV PUSH (13:32)
[2024-11-23 13:40] LABS: Alanine Aminotransferase 35 U/L (6-50); Albumin Level 3.9 g/dL (3.5-5.1); Alkaline Phosphatase 73 U/L (38-126); Anion Gap 0 mmol/L (4-12); Aspartate Amino Transferase 40 U/L (17-59); Bilirubin,Total 0.3 mg/dL (0.2-1.3); Blood Urea Nitrogen 11 mg/dL (9-20); Calcium 8.6 mg/dL (8.4-10.2); Carbon Dioxide 31 mmol/L (22-30); Chloride 108 mmol/L (98-107); Estimated CRCL calculation 96 ml/min; Estimated Glomerular Filt Rate > 60; Glucose 99 mg/dL (65-110); Lactic Acid Reflex 1.3 mmol/L (0.4-2.0); Osmolality Calculated 287 mOsm/kg (285-295); Potassium 4.3 mmol/L (3.4-5.0); Sodium 139 mmol/L (137-145); Total Protein 6.7 g/dL (6.3-8.2)
[2024-11-23 13:42] LABS: D Dimer 0.23 mg/L (0.19-0.50); INR 0.9; Partial Thromboplastin Time 26.8 Sec (23.9-30.70); Prothrombin Time 9.8 Seconds (9.50-12.1)
[2024-11-23 13:52] LABS: NT Pro B Type Natriuretic Pept 26 pg/mL (19.9-100); Troponin I < 0.012 ng/mL (0.000-0.034)
[2024-11-23 14:00] VITALS: BP 144/92; PULSE 70; RESP 17; O2SAT 100
[2024-11-23 14:09] LABS: Add Urine Microscopic? NO; Appearance Urine Clear (Clear); Bilirubin Urine Negative (Negative); Blood Urine Negative (Negative); Glucose Urine UA Negative (Negative); Ketones Urine Negative (Negative); Leukocyte Esterase Ur Negative LEU/UL (Negative); Nitrate Urine Negative (Negative); Protein Urine Negative (Negative); Urobilinogen Urine 0.2 mg/dL (0.2-1.0)
--- NOTE | 2024-11-23 14:11 | ED_ITS ---
HPI - Back Pain/Injury General Chief Complaint: Back Pain/Injury Stated Complaint: right flank pain Time Seen by Provider: 11/23/24 12:58 Source: patient and family Mode of arrival: ambulatory Limitations: no limitations History of Present Illness HPI Narrative: this is a 49-year-old gentleman with no significant past medical history presents with her right upper back pain with deep inspiration sharp in nature with no chest pain no shortness of breath no abdominal pain no nausea vomiting no dysuria or hematuria mild flank discomfort on the right no radiation of his pain into his groin. No fever chills no diarrhea constipation. MD elicited complaint: back pain Onset (ago): day(s) Related Data Allergies Allergy/AdvReac Type Severity Reaction Status Date / Time No Known Allergies Allergy Verified 11/23/24 12:52 Review of Systems 2 Review of Systems: All systems reviewed & are unremarkable except as noted in HPI and below PMFSH Past Medical History Medical History Perforated ulcer of intestine Tobacco abuse Social History Social History Smoking status: Current every day smoker Tobacco type: cigarettes Gender identity (if verbalized by the patient): Male Exam 2 Const: General: healthy appearing, no acute distress and alert O rientation/consciousness: patient oriented x3 Limitations: no limitations Eyes: Conjunctivae: conjunctivae normal Neck: Neck: normal visual inspection, no lymphadenopathy and no meningeal signs Chest: Chest palpation & inspection: normal inspection of the chest Resp: Effort & Inspection: normal respiratory effort Auscultation: clear to auscultation bilaterally Cardio: Rate: regular rate Rhythm: regular rhythm GI: GI Palp: Yes Soft to palpation Auscultation: normal bowel sounds Urinary Catheter: Urinary Catheter: patent and draining Back/Spine/Pelvis: Back: CVA tenderness Skin: General skin exam: normal color Rashes: no rashes Wounds: no wounds Neuro: General: patient oriented x3 Extrem: General: normal to inspection and no clubbing, cyanosis or edema Course Course Emergency Course: Patient with some right-sided pleuritic upper back pain had chest x-ray which showed no acute abnormalities CT scan of the abdomen pelvis without contrast shows no acute abnormalities, EKG shows normal sinus rhythm blood work is unremarkable patient did receive 30mg IV Toradol along with IV fluids pain level has marginally improved after dose of his Toradol. Vital Signs Vital signs: Vital Signs Temperature 36.3 C L 11/23/24 12:51 Pulse Rate 75 11/23/24 12:51 Respiratory Rate 18 11/23/24 12:51 Blood Pressure 136/90 11/23/24 12:51 Pulse Oximetry 100 11/23/24 12:51 Oxygen Delivery Room Air 11/23/24 12:51 Temperature 36.3 C L 11/23/24 12:51 Pulse Rate 75 11/23/24 12:51 Respiratory Rate 18 11/23/24 12:51 Blood Pressure 136/90 11/23/24 12:51 Pulse Oximetry 100 11/23/24 12:51 Oxygen Delivery Room Air 11/23/24 12:51 MDM - Back Pain/Injury Lab Data 11/23/24 13:22 11/23/24 13:22 Labs: Lab Results 11/23/24 11/23/24 Range/Units 13:22 14:02 WBC 8.6 (4.8-10.8) K/mm3 RBC 4.66 L (4.70-6.10) M/mm3 Hgb 13.3 L (14.0-18.0) g/dL Hct 41.6 (40.0-54.0) % MCV 89.3 (78.0-102.0) fL MCH 28.5 (27.0-31.0) pg MCHC 32.0 (32-36) g/dL RDW 13.2 (11.6-14.4) % Plt Count 279 (150-420) K/mm3 MPV 9.2 (8.7-11.0) fl Immature Gran % (Auto) 0.5 H (0.0-0.0) % Neut % (Auto) 65.4 (50.0-70.0) % Lymph % (Auto) 22.3 (18.0-42.0) % [place] % (Auto) 8.0 (2.0-11.0) % Eos % (Auto) 2.8 (1.0-6.0) % Baso % (Auto) 1.0 (0.0-1.0) % Lymph # (Auto) 1.93 (1.10-4.50) K/mm3 [place] # (Auto) 0.69 (0.10-0.90) K/mm3 Eos # (Auto) 0.24 (0.02-0.50) K/mm3 Baso # (Auto) 0.09 (0.00-0.10) K/mm3 Abs Immat Gran (auto) 0.04 H (0.00-0.00) K/mm3 Absolute Neuts (auto) 5.65 (1.70-7.20) K/mm3 Absolute Nucleated RBC 0.00 (0.00-0.00) K/mm3 Nucleated RBC % 0.0 (0-0.0) % PT 9.8 (9.50-12.1) Seconds INR 0.9 APTT 26.8 (23.9-30.70) Sec D-Dimer 0.23 (0.19-0.50) mg/L Sodium 139 (137-145) mmol/L Potassium 4.3 (3.4-5.0) mmol/L Chloride 108 H (98-107) mmol/L Carbon Dioxide 31 H (22-30) mmol/L Anion Gap 0 L (4-12) mmol/L BUN 11 (9-20) mg/dL Creatinine 0.78 (0.7-1.3) mg/dL Estim Creat Clear Calc 96 ml/min Estimated GFR > 60 (59 - ) Glucose 99 (65-110) mg/dL Calculated Osmolality 287 (285-295) mOsm/kg Lactic Acid 1.3 (0.4-2.0) mmol/L Calcium 8.6 (8.4-10.2) mg/dL Magnesium 2.0 (1.6-2.3) mg/dL Total Bilirubin 0.3 (0.2-1.3) mg/dL AST 40 (17-59) U/L ALT 35 (6-50) U/L Alkaline Phosphatase 73 (38-126) U/L Troponin I < 0.012 (0.000-0.034) ng/mL NT-Pro-B Natriuret Pep 26 (19.9-100) pg/mL Total Protein 6.7 (6.3-8.2) g/dL Albumin 3.9 (3.5-5.1) g/dL Urine Color Pending Urine Appearance Pending Urine pH Pending Ur Specific [place] Pending Urine Protein Pending Urine Glucose (UA) Pending Urine Ketones Pending Ur Blood (Man) Pending Urine Nitrate Pending Urine Bilirubin Pending Urine Urobilinogen Pending Leukocyte Esterase Rfl Pending Critical Care Time Critical Care Time Critical Care Time: No Discharge Plan Discharge Clinical Impression: Pleurisy Patient Disposition: Home Condition: Stable Instructions: Antibiotic Form, Pleurisy (ED) Additional Instructions: advised patient to take medication as prescribed and follow with primary care physician within 1 week further evaluation and treatment. Patient Language: Georgian Prescriptions: New naproxen 500 mg tablet 500 mg PO BID Qty: 14 0RF Follow-up/Referrals: Ledy,MD Sudeep [Primary Care Provider] -
[2024-11-23 14:12] LABS: Color Urine Yellow (Yellow)
[2024-11-23 14:30] VITALS: BP 135/94; PULSE 62; RESP 17; O2SAT 100
== END 2024-11-23 14:30 | disposition home or self-care (01) ==
PROVIDERS: Emergency Provider Emergency Medicine; PCP Family Medicine
DX: R09.1 Pleurisy (principal); F17.210 Nicotine dependence, cigarettes, uncomplicated
CPT/HCPCS: 36415; 71046; 74176; 80053; 81003; 83605; 83735; 83880; 84484; 85025; 85380; 85610; 85730; 93005; 96361; 96374; 99284; J1885; J7030

== ENCOUNTER 2025-01-07 11:27 | Emergency (ER) | payer OTHER, SELFPAY ==
--- NOTE | ~2025-01-07 | CT_ITS ---
EXAMINATION: CT cervical spine wo con DATE: 01/07/2025 12:17 INDICATION: Neck pain post fall TECHNIQUE: Computed tomography (CT) of the cervical spine was performed without intravenous contrast. Automated exposure control and iterative reconstruction technique were employed. The dose-length pro duct was 352.92 mGy-cm. COMPARISON: None FINDINGS: Straightening of the normal cervical lordosis. Mild osteoarthritis at the atlantoaxial articulation. Vertebral heights are normal. No fracture. Minimal disc height loss with disc bulge contributing to m ild central canal stenosis at C5-C6. Minimal to mild multilevel cervical uncovertebral osteoarthritis . There is moderate cervical facet osteoarthritis on the left at C2-C3 with minimal to mild facet ost eoarthritis throughout the remainder of the cervical and visualized upper thoracic spine. No neural f oraminal stenosis. Cervical soft tissues are unremarkable. Visualized apices of lungs are clear. IMPRESSION: 1. Straightening of the normal cervical lordosis which could positional or due to muscle spasm. No ac huslia osseous abnormality. 2. Minimal to mild cervical spondylosis. Reviewed, dictated and finalized at location A. IMPRESSION: 1. Straightening of the normal cervical lordosis which could positional or due to muscle spasm. No acute osseous abnormality. 2. Minimal to mild cervical spondylosis.
[2025-01-07 11:27] VITALS: BP 128/95; PULSE 80; RESP 18; TEMP 36.9; O2SAT 99
--- NOTE | 2025-01-07 11:42 | ED.NECK ---
HPI - Neck Pain/Injury General Chief Complaint: Neck Pain/Injury Stated Complaint: neck pain Time Seen by Provider: 01/07/25 11:42 Source: patient Mode of arrival: ambulatory Limitations: no limitations History of Present Illness HPI Narrative: patient is a 49-year-old male with a cervical spine pain after 2 different injuries. First injury in the past week was tripping over a cord and losing his balance and a whiplash like injury to the neck. The 2nd injury was the next day and he stepped in a hole in the yd and further had another whiplash-type injury. No direct injury to the head or neck. No other injuries. Pain is midline cervical spine and paraspinal. There is slight pain on the shoulders as well. No numbness or motor changes of the upper extremities. No other injuries. MD complaint: neck pain ( Whiplash like injuries of the neck without direct neck injury) Onset (ago): week(s) ( 1) Place: street/outdoors Radiation: right lateral, left lateral, occiput, right shoulder and left shoulder Severity: severe Severity scale (1-10): 8 Quality: sharp and spasming Duration: constant Relieving factors: none Exacerbating factors: movement of extremity and movement of neck Context: fall ( without direct injury to the head or neck) Associated symptoms: none Treatments prior to arrival: acetaminophen and ibuprofen Related Data Allergies Allergy/AdvReac Type Severity Reaction Status Date / Time No Known Allergies Allergy Verified 01/07/25 11:45 Review of Systems Review of Systems: All systems reviewed & are unremarkable except as noted in HPI and below Constitutional: Constitutional: Reports no additional constitutional complaints Eyes: Eyes: Reports no additional eye complaints ENT: Reports system reviewed and no additional complaints, except as documented Cardiovascular: Cardiovascular: Reports no additional cardiovascular complaints Respiratory: Respiratory: Reports no additional respiratory complaints Gastrointestinal: Gastrointestinal: Reports no additional gastrointestinal complaints Genitourinary: Genitourinary: Reports no additional male genitourinary complaints Musculoskeletal: Musculoskeletal: Reports no additional musculoskeletal complaints Integumentary/Breasts: Skin/Breast: Reports system reviewed and no additional complaints, except as docu Neurologic: Reports system reviewed and no additional complaints, except as documented Psychiatric: Psychiatric: Reports no additional psychiatric complaints Endocrine: Endocrine: Reports no additional endocrine complaints Hematologic/Lymphatic: Hematologic/Lymphatic: Reports no additional hematologic/lymphatic complaints Allergic/Immunologic: Allergic/Immunologic: Reports no additional allergic/immunologic complaints PMFSH Past Medical History Medical History Perforated ulcer of intestine Tobacco abuse Social History Social History Smoking status: Current every day smoker Tobacco type: cigarettes Gender identity (if verbalized by the patient): Male Exam Const: General: healthy appearing Nutritional Appearance: well nourished Orientation/consciousness: patient oriented x3 HENMT: Head: normal to inspection Ears: external ears normal Face/Nose/Sinus: Normal external nose present Eyes: Conjunctivae: conjunctivae normal Pupils: Equal, round and reactive pupils present EOM: EOMs intact bilaterally Neck: Neck: normal visual inspection, no lymphadenopathy, no meningeal signs and no lymphadenopathy noted Other: cervical spine tenderness midline and paraspinal on either side to palpation from C3-C5 region; no motor or sensory deficits of the bilateral upper extremities; no difficulty breathing Chest: Chest palpation & inspection: normal inspection of the chest Resp: Effort & Inspection: normal respiratory effort and not labored Auscultation: clear to auscultation bilaterally and no crackles Cardio: Rate: regular rate Rhythm: regular rhythm Heart sounds: no murmurs GI: Inspection: non-distended GI Palp: Yes Soft to palpation and No Tenderness to palpation present (GI) Auscultation: normal bowel sounds : General: Yes bladder normal to palpation Back/Spine/Pelvis: Back: no CVA tenderness Skin: General skin exam: normal color Rashes: no rashes Wounds: no wounds Neuro: General: patient oriented x3, moves all extremities, no meningeal signs and CN's II-XI intact bilaterally Extrem: General: normal to inspection, no clubbing, cyanosis or edema and no pedal edema Psych: Mental Status: mental status grossly normal Affect: normal affect Attitude: cooperative Course Vital Signs Vital signs: Vital Signs Temperature 36.9 C 01/07/25 11:27 Pulse Rate 80 01/07/25 11:27 Respiratory Rate 18 01/07/25 11:27 Blood Pressure 128/95 H 01/07/25 11:27 Pulse Oximetry 99 01/07/25 11:27 Oxygen Delivery Room Air 01/07/25 11:27 Temperature 36.9 C 01/07/25 11:27 Pulse Rate 80 01/07/25 11:27 Respiratory Rate 18 01/07/25 11:27 Blood Pressure 128/95 H 01/07/25 11:27 Pulse Oximetry 99 01/07/25 11:27 Oxygen Delivery Room Air 01/07/25 11:27 MDM - Neck Pain/Injury MDM Narrative Medical decision making narrative: patient is a 49-year-old male with cervical spine pain after 2 different falls in the past week without direct injury. We will get a CT scan of the cervical spine and put him in a collar and given Toradol IM. Imaging Data Attestation: I personally reviewed and interpreted this imaging study as follows: Radiologist's impression: CT scan of the cervical spine shows IMPRESSION: 1. Straightening of the normal cervical lordosis which could positional or due to muscle spasm. No acute osseous abnormality. 2. Minimal to mild cervical spondylosis. Discharge Plan Discharge Clinical Impression: Acute cervical myofascial strain Qualifiers: Encounter type: initial encounter Qualified Code(s): S16.1XXA - Strain of muscle, fascia and tendon at neck level, initial encounter Patient Disposition: Home Condition: Stable Instructions: Cervical Strain (ED) Patient Language: Mongolian Prescriptions: New prednisone 20 mg tablet 40 mg PO DAILY 3 Days Qty: 6 0RF carisoprodol [Soma] 350 mg tablet 350 mg PO TID PRN (Reason: muscle pain) Qty: 20 0RF Follow-up/Referrals: Ledy,MD Sudeep [Primary Care Provider] - Time of Disposition: 12:33
[2025-01-07] MEDS: KETOROLAC (*BKC) 60 MG/2 ML VIAL IM (11:54)
--- OUTSIDE RECORDS SUMMARY | 2025-01-07 11:59 | XMS_ITS | Encounter Summary ---
Author Organization [facility] Address [address] [place] [id number] Care Team Providers Care Range Examiner Name Role Phone Saul Lucero MD Primary Care Provider [phone] Ramirez Jackson MD Unavailable [phone] Benjie Portillo MD Unavailable Unavail able Sudeep Villafana MD Primary Care Provider Encounter Details Date Type Department Care Team (Late st Contact Info) Description 11/05/2018 Abstract [facility] [address] [place] [address] , Generic Conversion, Social History Tobacco Use Types Packs/Day Years Used Date Smoking Tobacco: Never Assessed Sex and Gender Information Value Date Recorded Sex Assigned at Male 11/09/2024 7:49 AM CDT Legal Sex Male 11:57 PM CDT Gender Identity Not on file Sexual Orientation Not on file documented as of this encounter Plan of Treatment Not on file documented as of this encounter Visit Diagnoses Not on filedocumented in this encounter Additional Health Concerns Infection Onset Date Last Indicated Resolved Time COVID-19 Rule Out 04/15/2020 04/15/2020 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
--- OUTSIDE RECORDS SUMMARY | 2025-01-07 11:59 | XMS_ITS | Encounter Summary ---
Author Organization [facility] Address [facility] [place] [address] Care Team Providers Care Remote Recruiter Name Role Phone Saul Lucero MD Primary Care Provider [phone] Benjie Portillo MD Unavailable Unavail able Sudeep Villafana MD Primary Care Provider [phone] Reason for Visit * Reason Onset Date Comments Hospital Follow Up 04/22/2020 Encounter Details Date Type Department Care Team (Late st Contact Info) Description 04/22/2020 Hospital Follow-up Call [facility] [address] [place] [address] Cynthia Wilson, RN Hospital Follow Up Social History [...] COVID-19? 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 Answer Date of Assessment Author Status No 04/15/2020 5:00 PM BUTCHER SUPERVISOR Activ e * Do you have serious [...] on filedocumented in this encounter Care Teams Remote Recruiter Relationship Specialty Start Date End Date Saul Lucero MD [address] [place] [phone] PCP - General FAMILY PRACTICE 02/27/19 06/25/22 Sudeep Villafana MD [address] [place] [phone] PCP - General FAMILY PRACTICE 06/26/22 Benjie Portillo MD [address] [place] [phone] Consulting Physician CARDIOVASCULAR DISEASE 03/02/19 documented as of this encounter
--- OUTSIDE RECORDS SUMMARY | 2025-01-07 11:59 | XMS_ITS | Encounter Summary ---
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
--- OUTSIDE RECORDS SUMMARY | 2025-01-07 11:59 | XMS_ITS | Encounter Summary ---
Author Organization [facility] Address [address] [place] [address] Care Team Providers Care Outside Sales Name Role Phone Saul Lucero MD Primary Care Provider [phone] Benjie Portillo MD Unavailable Unavail able Sudeep Villafana MD Primary Care Provider [phone] Encounter Details Date Type Department Care Team ([facility] Contact Info) Description 03/08/2019 Abstract [facility] [address] [place] [phone] Abstract, Doc [facility] Social History Tobacco [...] on file documented as of this encounter Functional Status documented as of this encounter Plan of Treatment Not on file documented as of this encounter Visit Diagnoses Not on filedocumented in this encounter Additional Health Concerns Infection Onset Date Last Indicated Resolved Time COVID-19 Rule Out 04/15/2020 04/15/2020 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
--- OUTSIDE RECORDS SUMMARY | 2025-01-07 11:59 | XMS_ITS | Clinical Summary ---
Author Organization [facility] Address [facility] [place] [address] Care Team Providers Care Patrol Conductor Name Role Phone Sudeep Villafana MD Primary [...] 3 Day Supply 12 tablet 06/26/2022 Active amoxicillin-cla vulanate (AUGMENTIN) 875-125 MG tablet Take 1 tablet (875 mg total) by mouth 2 (two) times daily. for 7 days 11/06/2024 Active Active Problems Problem Noted Date Diagnosed Date Abdominal pain 04/14/2020 Perforated duodenal ulcer (CMS/HCC [facility]/HCC) 03/31 Chest pain, unspecified type 03/15/2019 Encounters Date Type Department Care Team Description 11/09/2024 7:34 AM CDT - 11/09/2024 7:50 AM CDT Emergency [facility] [address] [place] [address] Chaparro Thomas MD Laceration Discharge Disposition: Home or Self Care (Routine Discharge) 11/09/2024 Travel from Last 3 Months Immunizations Immunization Administration Dates Next Due Fluzone 6 Months+ [...] Sign Reading Time Taken Comments Blood Pressure 171/94 11/09/2024 7:39 AM CDT Pulse 88 11/09/2024 7:39 AM CDT Temperature 36.2 C (97.2 F) 11/09/2024 7:39 AM CDT Respiratory Rate 18 11/09/2024 7:39 AM CDT Oxygen Saturation 100% 11/09/2024 7:39 AM CDT Inhaled Oxygen Concentration - - Weight 76.7 kg (169 lb 2 oz) 11/09/2024 7:39 AM CDT Height 172.7 cm (5' 8) 11/09/2024 7:39 AM CDT Body Mass Index 25.72 11/09/2024 7:39 AM CDT Plan of Treatment Health Maintenance Due Date Last Done Comments Colorectal Cancer Screening Colonoscopy (10 Years) 1975 Annual Physical 1978 Hepatitis C 1993 Hepatitis B Vaccines (1 of 3 - 19+ 3-dose series) 1994 Pneumococcal Vaccine: Pediatrics (0 to 5 Years) and At-Risk Patients (6 to 49 Years) (1 of 2 - PCV) 1994 COVID-19 Vaccine (3 - 2023-2 5 season) 2024 01/31/2021, 01/07/2021 DTaP, Tdap and Td Vaccines ( 3 [...] patient's age to complete this topic Insurance Advance Directives Documents on File Type Date Recorded 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
[2025-01-07 12:41] VITALS: BP 118/77; PULSE 73; RESP 20; TEMP 36.9; O2SAT 94
== END 2025-01-07 12:41 | disposition home or self-care (01) ==
PROVIDERS: Emergency Provider Emergency Medicine; PCP Family Medicine
DX: S16.1XXA Strain of muscle, fascia and tendon at neck level, initial encounter (principal); W01.0XXA Fall on same level from slipping, tripping and stumbling without subsequent striking against object, initial encounter; F17.210 Nicotine dependence, cigarettes, uncomplicated
CPT/HCPCS: 72125; 96372; 99284; J1885; L0150